=== PATIENT | female | born 1980 | race African-American/Black ===

== ENCOUNTER 2017-05-22 14:41 | Emergency (ER) | payer MEDICAID ==
[~2017-05-22] VITALS: Ht 167.6 cm; Wt 123.0 kg
[~2017-05-22 14:41] MED LIST: ALBU17AE26; SPIREVA
[2017-05-22] MEDS ORDERED: IPRATROPIUM/ALBUTEROL 0.5-3(2.5)MG/3ML NEB HHN ONE ×2 (15:30→17:30)
[2017-05-22] MEDS ORDERED: IPRATROPIUM/ALBUTEROL 0.5-3(2.5)MG/3ML NEB ONE (16:40)
[2017-05-22] MEDS ORDERED: METHYLPREDNISOLONE SOD SUCC 125 MG/2 ML VIAL IV ONE (17:30)
[2017-05-22] MEDS ORDERED: SODIUM CHLORIDE 0.9% 1,000 ML IV ONE (17:30)
[2017-05-22 19:50] VITALS: BP 122/74
== END 2017-05-22 21:00 | disposition home or self-care (01) ==
LOC: ER 15:05
DX: J45.901 Unspecified asthma with (acute) exacerbation (principal); J06.9 Acute upper respiratory infection, unspecified; E11.9 Type 2 diabetes mellitus without complications; F17.200 Nicotine dependence, unspecified, uncomplicated
CPT/HCPCS: 71010; 94640; 96361; 96374; 99284; J2930; J7030; Z7610; J7620

== ENCOUNTER 2017-10-26 15:46 | Emergency (ER) | payer MEDICAID ==
[~2017-10-26] VITALS: Ht 167.6 cm; Wt 127.0 kg
[2017-10-26] MEDS ORDERED: IPRATROPIUM BROMIDE (0.02%) 0.5MG/2.5ML NEB HHN STA (16:13)
[2017-10-26] MEDS ORDERED: PREDNISONE 20MG TABLET PO STA (16:13)
[2017-10-26] MEDS ORDERED: ALBUTEROL (0.083%) 2.5MG/3ML NEB HHN STA (16:13)
[2017-10-26] MEDS ORDERED: METHYLPREDNISOLONE SOD SUCC 125 MG/2 ML VIAL IM ONE (16:30)
[2017-10-26 19:20] VITALS: BP 155/84
== END 2017-10-26 19:24 | disposition home or self-care (01) ==
LOC: ER 16:59
DX: J45.901 Unspecified asthma with (acute) exacerbation (principal); E11.9 Type 2 diabetes mellitus without complications
CPT/HCPCS: 94640; 96372; 99283; J2930; J7611

== ENCOUNTER 2018-10-05 16:51 | Inpatient (IN) | payer OTHER, MEDICAID ==
[~2018-10-05] VITALS: Ht 167.6 cm; Wt 122.0 kg
[~2018-10-05 16:51] MED LIST changes: -ALBU17AE26; +ALBU17AE26 INH; +MUCINEX
[2018-10-05] MEDS ORDERED: METHYLPREDNISOLONE SOD SUCC 125 MG/2 ML VIAL IV STA (17:10)
[2018-10-05] MEDS ORDERED: IPRATROPIUM BROMIDE (0.02%) 0.5MG/2.5ML NEB HHN STA (17:10)
[2018-10-05] MEDS ORDERED: ALBUTEROL (0.083%) 2.5MG/3ML NEB HHN STA (17:10)
[2018-10-05 17:36] LABS: BASOPHILS % 0.9 % (0.0-2.0); EOSINOPHILS % 0.4 % (0.0-5.0); HEMATOCRIT. 39.4 % (36.0-48.0); HEMOGLOBIN. 12.7 g/dL (12.0-16.0); LYMPHOCYTES % 7.9 % (20.0-50.0); MEAN CORPUSCULAR HEMOGLOBIN 30.9 pg (28.0-32.0); MEAN CORPUSCULAR VOLUME 95.6 fL (81.0-99.0); MEAN PLATELET VOLUME 8.1 fl (7.4-10.4); MONOCYTES % 4.4 % (2.0-8.0); NEUTROPHILS % 86.4 % (40.0-76.0); PLATELET 296 x1000/uL (130-400); RED BLOOD CELL COUNT 4.11 mill/uL (4.2-5.4); RED CELL DISTRIBUTION WIDTH 15.7 % (11.6-14.6)
[2018-10-05 17:39] LABS: CHLORIDE 99 mEq/L (98-107)
[2018-10-05] MEDS ORDERED: AZITHROMYCIN 500 MG in DEXT 5% WATER 250 ML IV ONE (19:00)
[2018-10-05] MEDS ORDERED: CEFTRIAXONE 1 G PREMIX 50 ML IV ONE (19:00)
[2018-10-05] MEDS ORDERED: ALBUTEROL (0.083%) 2.5MG/3ML NEB HHN ONE (20:00)
[2018-10-05] MEDS ORDERED: LORAZEPAM 2MG/ML CPJ IV PRN (21:15)
[2018-10-05] MEDS ORDERED: ONDANSETRON HCL 4MG/2ML INJ IV PRN (21:15)
[2018-10-05] MEDS ORDERED: CLONIDINE 0.1MG TABLET PO PRN (21:15)
[2018-10-05] MEDS ORDERED: ENOXAPARIN 40MG/0.4ML SYR SUBCUT SCH (21:15)
[2018-10-05] MEDS ORDERED: ACETAMINOPHEN 325MG TABLET PO PRN (21:15)
[2018-10-05] MEDS ORDERED: DOCUSATE SODIUM 100MG CAPSULE PO PRN (21:15)
[2018-10-05] MEDS ORDERED: NA PHOS,M-B/NA PHOS,DI-BA ENEMA 118ML PR PRN (21:15)
[2018-10-05] MEDS ORDERED: DIPHENHYDRAMINE 50MG/ML VIAL IV PRN (21:15)
[2018-10-05] MEDS ORDERED: GUAIFENESIN 200MG/10ML SUGAR FREE UDC PO PRN (21:15)
[2018-10-05] MEDS ORDERED: MAGNESIUM/ALUMINUM HYDROXIDE/SIMETHICONE 30ML UDC PO PRN (21:15)
[2018-10-05] MEDS ORDERED: HYDROCODONE/ACETAMINOPHEN 10/325MG TABLET PO PRN (21:30)
[2018-10-05] MEDS ORDERED: HYDROMORPHONE HCL/PF 2MG/ML CPJ IV PRN (21:30)
[2018-10-06] VITALS (7 sets, daily range): BP systolic 115–141; BP diastolic 64–88
[2018-10-06 00:01] LABS: CREATINE KINASE 68 IU/L (26-192)
[2018-10-06 00:02] LABS: CREATINE KINASE MB FRACTION < 1.0 ng/mL (0.5-3.6)
[2018-10-06 00:10] LABS: CLARITY URINE CLEAR (CLEAR); COLOR URINE ORANGE (YELLOW); KETONES URINE TRACE (NEGATIVE); LEUKOCYTE ESTERASE URINE 1+ (NEGATIVE); NITRITE URINE NEGATIVE (NEGATIVE); OCCULT BLOOD URINE 3+ (NEGATIVE); PH URINE 5.5 (4.5-8.0); PROTEIN URINE 1+ (NEGATIVE); SPECIFIC GRAVITY URINE 1.021 (1.005-1.030)
[2018-10-06] MEDS: IPRATROPIUM/ALBUTEROL 0.5-3(2.5)MG/3ML NEB INH PRN ×3 (00:46→12:05)
[2018-10-06] MEDS ORDERED: HYDRALAZINE 20MG/ML VIAL IV PRN (01:22)
[2018-10-06] MEDS: METHYLPREDNISOLONE SOD SUCC 125 MG/2 ML VIAL IV SCH ×3 (02:16→12:08)
[2018-10-06] MEDS: SODIUM CHLORIDE 0.9% INJ 3ML FLUSH IVF SCH ×3 (06:00→21:28)
[2018-10-06 06:15] LABS: HEMATOCRIT. 38.5 % (36.0-48.0); HEMOGLOBIN. 12.3 g/dL (12.0-16.0); MEAN CORPUSCULAR HEMOGLOBIN 30.7 pg (28.0-32.0); MEAN CORPUSCULAR VOLUME 96.1 fL (81.0-99.0); MEAN PLATELET VOLUME 8.4 fl (7.4-10.4); PLATELET 300 x1000/uL (130-400); RED BLOOD CELL COUNT 4.01 mill/uL (4.2-5.4); RED CELL DISTRIBUTION WIDTH 15.6 % (11.6-14.6)
[2018-10-06 06:21] LABS: CHLORIDE 99 mEq/L (98-107)
[2018-10-06 06:35] LABS: CREATINE KINASE 60 IU/L (26-192)
[2018-10-06 06:39] LABS: CREATINE KINASE MB FRACTION < 1.0 ng/mL (0.5-3.6)
[2018-10-06 08:59] LABS: PLATELET ESTIMATE NORMAL
[2018-10-06] MEDS: ENOXAPARIN 30MG/0.3ML SYR SUBCUT SCH ×2 (09:00→21:00)
[2018-10-06] MEDS: ASPIRIN 81MG EC TABLET PO SCH (09:08)
[2018-10-06] MEDS: CEFTRIAXONE 1 G PREMIX 50 ML IV SCH (14:23)
[2018-10-06] MEDS: IPRATROPIUM/ALBUTEROL 0.5-3(2.5)MG/3ML NEB HHN SCH ×2 (15:22→21:07)
[2018-10-06] MEDS: AMLODIPINE 5MG TABLET PO SCH ×2 (15:33→21:29)
[2018-10-06] MEDS: NICOTINE 14MG PATCH TD SCH (16:55)
[2018-10-06] MEDS: PREDNISONE 20MG TABLET PO SCH (16:55)
[2018-10-06 17:28] LABS: UCG SCREEN NEGATIVE
[2018-10-06 17:40] LABS: *BARBITURATES SCREEN URINE NEGATIVE (NEGATIVE); CANNABINOID URINE SCREEN NEGATIVE (NEGATIVE); PHENCYCLIDINE URINE SCREEN NEGATIVE (NEGATIVE)
[2018-10-06 17:41] LABS: *AMPHETAMINES SCREEN URINE NEGATIVE (NEGATIVE); *BENZODIAZEPINES SCREEN URINE NEGATIVE (NEGATIVE); *COCAINE SCREEN URINE NEGATIVE (NEGATIVE); METHADONE URINE SCREEN NEGATIVE (NEGATIVE); OPIATES URINE SCREEN NEGATIVE (NEGATIVE)
[2018-10-06] MEDS: AZITHROMYCIN 500 MG in DEXT 5% WATER 250 ML IV SCH (18:16)
[2018-10-06] MEDS ORDERED: AZITHROMYCIN 500 MG in DEXT 5% WATER 250 ML IV SCH (21:00)
[2018-10-07] VITALS (7 sets, daily range): BP systolic 95–141; BP diastolic 55–83
[2018-10-07] MEDS: IPRATROPIUM/ALBUTEROL 0.5-3(2.5)MG/3ML NEB HHN SCH ×6 (00:50→21:13)
[2018-10-07] MEDS: SODIUM CHLORIDE 0.9% INJ 3ML FLUSH IVF SCH ×3 (05:39→20:37)
[2018-10-07] MEDS: AMLODIPINE 5MG TABLET PO SCH ×2 (09:00→20:37)
[2018-10-07] MEDS: PREDNISONE 20MG TABLET PO SCH ×2 (09:46→18:23)
[2018-10-07] MEDS: NICOTINE 14MG PATCH TD SCH (09:46)
[2018-10-07] MEDS: ASPIRIN 81MG EC TABLET PO SCH (09:46)
[2018-10-07] MEDS: ENOXAPARIN 30MG/0.3ML SYR SUBCUT SCH ×2 (09:47→20:37)
[2018-10-07] MEDS: CEFTRIAXONE 1 G PREMIX 50 ML IV SCH (14:12)
[2018-10-07] MEDS: AZITHROMYCIN 500 MG in DEXT 5% WATER 250 ML IV SCH (18:00)
[2018-10-08] MEDS: IPRATROPIUM/ALBUTEROL 0.5-3(2.5)MG/3ML NEB HHN SCH ×3 (00:57→08:33)
[2018-10-08 04:00] VITALS: BP 116/67
[2018-10-08] MEDS: SODIUM CHLORIDE 0.9% INJ 3ML FLUSH IVF SCH ×3 (06:00→22:00)
[2018-10-08 06:06] LABS: BASOPHILS % 0.4 % (0.0-2.0); HEMATOCRIT. 36.5 % (36.0-48.0); HEMOGLOBIN. 11.6 g/dL (12.0-16.0); LYMPHOCYTES % 17.7 % (20.0-50.0); MEAN CORPUSCULAR HEMOGLOBIN 30.4 pg (28.0-32.0); MEAN CORPUSCULAR VOLUME 96.1 fL (81.0-99.0); MEAN PLATELET VOLUME 8.4 fl (7.4-10.4); MONOCYTES % 4.5 % (2.0-8.0); NEUTROPHILS % 77.4 % (40.0-76.0); PLATELET 315 x1000/uL (130-400); RED CELL DISTRIBUTION WIDTH 15.4 % (11.6-14.6)
[2018-10-08 06:58] LABS: CHLORIDE 97 mEq/L (98-107)
[2018-10-08 08:00] VITALS: BP 131/79
[2018-10-08] MEDS: NICOTINE 14MG PATCH TD SCH ×2 (09:00→09:46)
[2018-10-08] MEDS: ASPIRIN 81MG EC TABLET PO SCH (09:45)
[2018-10-08] MEDS: PREDNISONE 20MG TABLET PO SCH (09:45)
[2018-10-08] MEDS: AMLODIPINE 5MG TABLET PO SCH ×2 (09:46→22:47)
[2018-10-08] MEDS: ENOXAPARIN 30MG/0.3ML SYR SUBCUT SCH ×2 (09:46→22:47)
[2018-10-08 12:00] VITALS: BP 153/87
[2018-10-08] MEDS: CEFTRIAXONE 1 G PREMIX 50 ML IV SCH (14:15)
[2018-10-08 16:00] VITALS: BP 160/92
[2018-10-08] MEDS: THEOPHYLLINE ANHYDROUS 80 MG/15 ML 120ML PO SCH ×2 (16:21→22:47)
[2018-10-08] MEDS ORDERED: AZITHROMYCIN 500 MG TABLET PO SCH (17:00)
[2018-10-08 19:56] VITALS: BP 142/87
[2018-10-09] VITALS: BP 148/78
[2018-10-09 04:00] VITALS: BP 142/84
[2018-10-09] MEDS: SODIUM CHLORIDE 0.9% INJ 3ML FLUSH IVF SCH (06:00)
[2018-10-09] MEDS: THEOPHYLLINE ANHYDROUS 80 MG/15 ML 120ML PO SCH (06:52)
[2018-10-09 07:48] VITALS: BP 137/92
[2018-10-09] MEDS: NICOTINE 14MG PATCH TD SCH (09:00)
[2018-10-09] MEDS ORDERED: PREDNISONE 20MG TABLET PO SCH (09:00)
[2018-10-09] MEDS: IPRATROPIUM/ALBUTEROL 0.5-3(2.5)MG/3ML NEB HHN SCH (09:45)
[2018-10-09] MEDS: ASPIRIN 81MG EC TABLET PO SCH (09:50)
[2018-10-09] MEDS: AMLODIPINE 5MG TABLET PO SCH (09:55)
[2018-10-09] MEDS: ENOXAPARIN 30MG/0.3ML SYR SUBCUT SCH ×2 (09:58→09:59)
[2018-10-09 11:27] VITALS: BP 137/74
== END 2018-10-09 14:05 | disposition home or self-care (01) | DRG 720 ==
LOC: ER 16:51 → 7WST 19:15 → ENRESERV 22:15
PROVIDERS: ADMIT Internal Medicine; ATTEND Internal Medicine
DX: A41.9 Sepsis, unspecified organism (principal); J96.20 Acute and chronic respiratory failure, unspecified whether with hypoxia or hypercapnia; J69.0 Pneumonitis due to inhalation of food and vomit; J44.1 Chronic obstructive pulmonary disease with (acute) exacerbation; J90 Pleural effusion, not elsewhere classified; R65.10 Systemic inflammatory response syndrome (SIRS) of non-infectious origin without acute organ dysfunction; I10 Essential (primary) hypertension; N39.0 Urinary tract infection, site not specified; J45.909 Unspecified asthma, uncomplicated; J43.0 Unilateral pulmonary emphysema [MacLeod's syndrome]; J43.9 Emphysema, unspecified; F17.210 Nicotine dependence, cigarettes, uncomplicated; Z82.3 Family history of stroke; Z82.49 Family history of ischemic heart disease and other diseases of the circulatory system; Z83.3 Family history of diabetes mellitus; Z98.891 History of uterine scar from previous surgery; Z79.899 Other long term (current) drug therapy
CPT/HCPCS: 36415; 71045; 71250; 80048; 80061; 80305; 81025; 82550; 82553; 83036; 84443; 84484; 87070; 93005; 93306; 94640; 96365; 96368; 96375; 99291; J0456; J0696; J1650; J2930; J7050; J7060; J7512; J7611; J7620

== ENCOUNTER 2019-08-02 21:39 | Emergency (ER) | payer MEDICAID ==
[~2019-08-02] VITALS: Ht 170.2 cm; Wt 100.0 kg
[~2019-08-02 21:39] MED LIST changes: -ALBU17AE26 INH; +ALBU2.5V13 NEB; +ALBU90AE IH; -MUCINEX; -SPIREVA; +TIOT18CA3 INH
[2019-08-02] MEDS ORDERED: SODIUM CHLORIDE 0.9% 1,000 ML IV ONE (21:53)
[2019-08-02] MEDS ORDERED: METHYLPREDNISOLONE SOD SUCC 125 MG/2 ML VIAL IV STA (21:53)
[2019-08-02 22:53] LABS: BASOPHILS % 0.3 % (0.0-2.0); EOSINOPHILS % 0.6 % (0.0-5.0); HEMATOCRIT. 41.2 % (36.0-48.0); HEMOGLOBIN. 13.1 g/dL (12.0-16.0); LYMPHOCYTES % 37.7 % (20.0-50.0); MEAN CORPUSCULAR HEMOGLOBIN 30.1 pg (28.0-32.0); MEAN PLATELET VOLUME 8.7 fl (7.4-10.4); MONOCYTES % 6.2 % (2.0-8.0); NEUTROPHILS % 55.2 % (40.0-76.0); PLATELET 293 x1000/uL (130-400); RED BLOOD CELL COUNT 4.33 mill/uL (4.2-5.4); RED CELL DISTRIBUTION WIDTH 13.8 % (11.6-14.6)
[2019-08-02 22:59] LABS: CHLORIDE 105 mEq/L (98-107)
[2019-08-02] MEDS ORDERED: DIPHENHYDRAMINE 50MG CAPSULE PO ONE (23:00)
[2019-08-02] MEDS ORDERED: FAMOTIDINE 20MG/2ML VIAL IV ONE (23:00)
[2019-08-02] MEDS ORDERED: POTASSIUM CHLORIDE 20MEQ TABLET SR PO ONE (23:15)
[2019-08-03 00:53] VITALS: BP 138/78
== END 2019-08-03 00:56 | disposition home or self-care (01) ==
LOC: ER 22:06
DX: T78.40XA Allergy, unspecified, initial encounter (principal); J45.909 Unspecified asthma, uncomplicated; Z79.899 Other long term (current) drug therapy; Z98.890 Other specified postprocedural states; X58.XXXA Exposure to other specified factors, initial encounter
CPT/HCPCS: 36415; 80053; 85025; 96374; 96375; 99283; J2930; J3490; J7030; Q0163

== ENCOUNTER 2019-10-04 05:22 | Emergency (ER) | payer MEDICAID ==
[~2019-10-04] VITALS: Ht 170.2 cm; Wt 83.0 kg
[2019-10-04] MEDS ORDERED: METHYLPREDNISOLONE SOD SUCC 40 MG/ML VIAL IV ONE (05:30)
[2019-10-04] MEDS ORDERED: FAMOTIDINE 20MG TABLET PO ONE (05:30)
[2019-10-04] MEDS ORDERED: DIPHENHYDRAMINE 25MG CAPSULE PO ONE (05:30)
[2019-10-04 06:12] LABS: CHLORIDE 103 mEq/L (98-107)
[2019-10-04 06:29] LABS: BASOPHILS % 1.1 % (0.0-2.0); EOSINOPHILS % 0.9 % (0.0-5.0); HEMATOCRIT. 36.4 % (36.0-48.0); HEMOGLOBIN. 11.6 g/dL (12.0-16.0); LYMPHOCYTES % 25.1 % (20.0-50.0); MEAN CORPUSCULAR HEMOGLOBIN 27.8 pg (28.0-32.0); MEAN CORPUSCULAR VOLUME 87.3 fL (81.0-99.0); MEAN PLATELET VOLUME 8.2 fl (7.4-10.4); MONOCYTES % 8.6 % (2.0-8.0); NEUTROPHILS % 64.3 % (40.0-76.0); PLATELET 261 x1000/uL (130-400); RED BLOOD CELL COUNT 4.17 mill/uL (4.2-5.4); RED CELL DISTRIBUTION WIDTH 15.4 % (11.6-14.6)
[2019-10-04 08:58] VITALS: BP 152/90
== END 2019-10-04 09:21 | disposition home or self-care (01) ==
LOC: ER 05:22
DX: R06.03 Acute respiratory distress (principal); Z20.828 Contact with and (suspected) exposure to other viral communicable diseases
CPT/HCPCS: 36415; 71045; 80053; 83605; 83880; 84145; 84484; 85025; 87635; 93005; 96374; 99291; J2920; Q0163

== ENCOUNTER 2019-10-12 11:40 | Inpatient (IN) | payer MEDICAID ==
[~2019-10-12] VITALS: Ht 172.7 cm; Wt 103.9 kg
[2019-10-12] MEDS ORDERED: ALBUTEROL (0.083%) 2.5MG/3ML NEB HHN STA (12:32)
[2019-10-12] MEDS ORDERED: METHYLPREDNISOLONE SOD SUCC 125 MG/2 ML VIAL IV STA (12:32)
[2019-10-12] MEDS ORDERED: IPRATROPIUM BROMIDE (0.02%) 0.5MG/2.5ML NEB HHN STA (12:32)
[2019-10-12] MEDS ORDERED: ASPIRIN 81MG TABLET PO ONE (12:45)
[2019-10-12 13:01] LABS: BASOPHILS % 0.7 % (0.0-2.0); HEMATOCRIT. 35.6 % (36.0-48.0); HEMOGLOBIN. 11.3 g/dL (12.0-16.0); LYMPHOCYTES % 11.5 % (20.0-50.0); MEAN CORPUSCULAR HEMOGLOBIN 27.2 pg (28.0-32.0); MEAN CORPUSCULAR VOLUME 85.5 fL (81.0-99.0); MEAN PLATELET VOLUME 7.7 fl (7.4-10.4); MONOCYTES % 7.9 % (2.0-8.0); NEUTROPHILS % 78.9 % (40.0-76.0); PLATELET 369 x1000/uL (130-400); RED BLOOD CELL COUNT 4.17 mill/uL (4.2-5.4)
[2019-10-12 13:10] LABS: CHLORIDE 100 mEq/L (98-107)
[2019-10-12 13:14] LABS: HCG SCREEN NEGATIVE
[2019-10-12] MEDS ORDERED: VANCOMYCIN 1 G PREMIX 200 ML IV ONE (13:45)
[2019-10-12] MEDS ORDERED: PIPERACILLIN/TAZ 3.375G PREMIX 50 ML IV ONE (13:45)
[2019-10-12] MEDS ORDERED: SODIUM CHLORIDE 0.9% 1000ML BAG (SEPSIS BOLUS) IV ONE (13:45)
[2019-10-12 16:36] LABS: CLARITY URINE CLOUDY (CLEAR); COLOR URINE RED (YELLOW); KETONES URINE NEGATIVE (NEGATIVE); LEUKOCYTE ESTERASE URINE 1+ (NEGATIVE); NITRITE URINE NEGATIVE (NEGATIVE); OCCULT BLOOD URINE 3+ (NEGATIVE); PROTEIN URINE 1+ (NEGATIVE); SPECIFIC GRAVITY URINE 1.014 (1.005-1.030); UROBILINOGEN URINE 0.2 E.U./dL (0.2-1.0)
[2019-10-12 17:10] VITALS: BP 149/90
[2019-10-12] MEDS ORDERED: ZOLPIDEM TARTRATE 5MG TABLET PO PRN (18:15)
[2019-10-12 20:00] VITALS: BP 147/85
[2019-10-12] MEDS: SODIUM CHLORIDE 0.9% INJ 3ML FLUSH IVF SCH (22:25)
[2019-10-12] MEDS: ACETAMINOPHEN 325MG TABLET PO PRN (22:32)
[2019-10-12] MEDS: IPRATROPIUM/ALBUTEROL 0.5-3(2.5)MG/3ML NEB HHN SCH (22:36)
[2019-10-13] VITALS: BP 145/88
[2019-10-13] MEDS: IPRATROPIUM/ALBUTEROL 0.5-3(2.5)MG/3ML NEB HHN SCH ×5 (00:41→21:13)
[2019-10-13 02:00] VITALS: BP 145/88
[2019-10-13 04:00] VITALS: BP 128/75
[2019-10-13] MEDS: IPRATROPIUM/ALBUTEROL 0.5-3(2.5)MG/3ML NEB HHN PRN (05:04)
[2019-10-13] MEDS: SODIUM CHLORIDE 0.9% INJ 3ML FLUSH IVF SCH ×3 (06:48→22:27)
[2019-10-13] MEDS: ACETAMINOPHEN 325MG TABLET PO PRN ×3 (06:49→15:40)
[2019-10-13 07:14] LABS: PROTHROMBIN TIME 10.9 sec (9.6-11.0)
[2019-10-13 08:46] VITALS: BP 164/95
[2019-10-13] MEDS: GUAIFENESIN 200MG/10ML SUGAR FREE UDC PO PRN (10:42)
[2019-10-13 16:00] VITALS: BP 138/86
[2019-10-13 20:48] VITALS: BP 131/66
[2019-10-14] VITALS (39 sets, daily range): BP systolic 100–221; BP diastolic 58–108
[2019-10-14] MEDS: ACETAMINOPHEN 325MG TABLET PO PRN (00:16)
[2019-10-14] MEDS: GUAIFENESIN 200MG/10ML SUGAR FREE UDC PO PRN (00:16)
[2019-10-14] MEDS: IPRATROPIUM/ALBUTEROL 0.5-3(2.5)MG/3ML NEB HHN PRN ×2 (00:54→04:47)
[2019-10-14] MEDS: SODIUM CHLORIDE 0.9% INJ 3ML FLUSH IVF SCH ×2 (06:01→21:29)
[2019-10-14] MEDS ORDERED: CLONIDINE 0.1MG TABLET PO PRN (08:45)
[2019-10-14] MEDS: IPRATROPIUM/ALBUTEROL 0.5-3(2.5)MG/3ML NEB HHN SCH ×3 (08:47→20:42)
[2019-10-14 13:40] LABS: BG BASE EXCESS 13.5 mmol/L (-2.0-2.0); BG CARBOXYHEMOGLOBIN 0.5 % (0.5-1.5); BG DEOXYHEMOGLOBIN 4.8 % (0.0-5.0); BG FRACTION INSPIRED OXYGEN 60; BG HCO3 ACT 46.3 mmol/L (22.0-26.0); BG METHEMOGLOBIN 0.3 % (0.0-1.5); BG OXYGEN SATURATION 95.2 % (92.0-98.5); BG OXYHEMOGLOBIN 94.4 % (94.0-97.0); BG PCO2 127.7 mmHg (35.0-45.0); BG PH 7.177 (7.350-7.450); BG PO2 85.7 mmHg (75.0-100.0); BG SAMPLE SITE RIGHT BRACHIAL; BG TOTAL HEMOGLOBIN 11.5 g/dL (12.0-18.0); BG VENT MODE MASK - SIMPLE
[2019-10-14] MEDS: FENTANYL CITRATE/PF 500 MCG in SODIUM CHLORIDE 0.9% 40 ML IV PRN ×2 (15:16→18:25)
[2019-10-14] MEDS: MIDAZOLAM HCL 50 MG in DEXTROSE 5% WATER 40 ML IV PRN ×2 (15:17→18:25)
[2019-10-14 16:27] LABS: BG BASE EXCESS 10.9 mmol/L (-2.0-2.0); BG CARBOXYHEMOGLOBIN 0.2 % (0.5-1.5); BG DEOXYHEMOGLOBIN 2.1 % (0.0-5.0); BG FRACTION INSPIRED OXYGEN 50; BG HCO3 ACT 35.8 mmol/L (22.0-26.0); BG METHEMOGLOBIN 0.1 % (0.0-1.5); BG OXYGEN SATURATION 97.9 % (92.0-98.5); BG OXYHEMOGLOBIN 97.6 % (94.0-97.0); BG PCO2 48.9 mmHg (35.0-45.0); BG PH 7.482 (7.350-7.450); BG PO2 90.8 mmHg (75.0-100.0); BG SAMPLE SITE RIGHT BRACHIAL; BG TIDAL VOLUME(mL) 550 mL; BG TOTAL HEMOGLOBIN 10.5 g/dL (12.0-18.0); BG VENT MODE VENT - A/C; BG VENT RATE 18 set
[2019-10-14] MEDS: DEXT 5%/0.45% NACL 1000ML 1,000 ML IV SCH (18:06)
[2019-10-14] MEDS: PANTOPRAZOLE SODIUM 40 MG/VIAL IV SCH (18:06)
[2019-10-14] MEDS: ENOXAPARIN 30MG/0.3ML SYR SUBCUT SCH (20:23)
[2019-10-14] MEDS ORDERED: MIDAZOLAM HCL 100 MG in DEXTROSE 5% WATER 80 ML IV PRN (22:00)
[2019-10-14] MEDS: FENTANYL CITRATE/PF 1,000 MCG in SODIUM CHLORIDE 0.9% 80 ML IV PRN (23:33)
[2019-10-14] MEDS: MIDAZOLAM HCL 100 MG in DEXT 5% WATER 80 ML IV PRN (23:33)
[2019-10-15] VITALS (89 sets, daily range): BP systolic 85–143; BP diastolic 33–81
[2019-10-15] MEDS: IPRATROPIUM/ALBUTEROL 0.5-3(2.5)MG/3ML NEB HHN SCH ×4 (02:02→20:31)
[2019-10-15] MEDS: DEXT 5%/0.45% NACL 1000ML 1,000 ML IV SCH ×4 (02:07→20:42)
[2019-10-15 03:29] LABS: HEMATOCRIT. 28.8 % (36.0-48.0); HEMOGLOBIN. 9.1 g/dL (12.0-16.0); MEAN CORPUSCULAR HEMOGLOBIN 27.1 pg (28.0-32.0); MEAN CORPUSCULAR VOLUME 85.6 fL (81.0-99.0); MEAN PLATELET VOLUME 8.4 fl (7.4-10.4); PLATELET 266 x1000/uL (130-400); RED BLOOD CELL COUNT 3.36 mill/uL (4.2-5.4); RED CELL DISTRIBUTION WIDTH 15.9 % (11.6-14.6)
[2019-10-15] MEDS: SODIUM CHLORIDE 0.9% INJ 3ML FLUSH IVF SCH ×3 (05:02→21:57)
[2019-10-15 06:30] LABS: PLATELET ESTIMATE NORMAL
[2019-10-15] MEDS ORDERED: SODIUM BICARBONATE 4% (2.4MEQ) 5ML VIAL IV ONE (08:12)
[2019-10-15] MEDS ORDERED: LIDOCAINE HCL 1% 20ML VIAL (Pyxis) INJ ONE (08:12)
[2019-10-15 08:32] LABS: BG BASE EXCESS 10.3 mmol/L (-2.0-2.0); BG CARBOXYHEMOGLOBIN 0.4 % (0.5-1.5); BG DEOXYHEMOGLOBIN 2.4 % (0.0-5.0); BG FRACTION INSPIRED OXYGEN 50; BG HCO3 ACT 34.2 mmol/L (22.0-26.0); BG METHEMOGLOBIN 0.2 % (0.0-1.5); BG OXYGEN SATURATION 97.6 % (92.0-98.5); BG PCO2 43.2 mmHg (35.0-45.0); BG PH 7.516 (7.350-7.450); BG SAMPLE SITE RIGHT RADIAL; BG TIDAL VOLUME(mL) 550 mL; BG TOTAL HEMOGLOBIN 9.7 g/dL (12.0-18.0); BG VENT MODE VENT - A/C; BG VENT RATE 18 set
[2019-10-15] MEDS: BLOOD SUGAR DIAGNOSTIC STRIP TEST SCH ×3 (09:00→20:38)
[2019-10-15] MEDS ORDERED: DEXTROSE 50% WATER 50ML SYRINGE IV PRN (09:00)
[2019-10-15] MEDS: PANTOPRAZOLE SODIUM 40 MG/VIAL IV SCH (09:31)
[2019-10-15] MEDS: ENOXAPARIN 30MG/0.3ML SYR SUBCUT SCH ×2 (09:32→20:38)
[2019-10-15] MEDS: PIPERACILLIN/TAZOBACTAM 3.375 G in DEXT 5% WATER 100 ML IV SCH ×2 (12:16→17:57)
[2019-10-15] MEDS: ACETAMINOPHEN 325MG TABLET PO PRN ×2 (12:52→17:57)
[2019-10-15] MEDS: FENTANYL CITRATE/PF 1,000 MCG in SODIUM CHLORIDE 0.9% 80 ML IV PRN (13:11)
[2019-10-15] MEDS: INSULIN LISPRO 100 UNITS/ML SUBCUT SCH ×3 (13:20→21:11)
[2019-10-15] MEDS ORDERED: PIPERACILLIN/TAZOBACTAM 3.375 G/VIAL IV SCH (14:00)
[2019-10-15] MEDS: VANCOMYCIN HCL 750 MG in DEXT 5% WATER 250 ML IV SCH ×2 (14:13→20:37)
[2019-10-15] MEDS: MIDAZOLAM HCL 100 MG in DEXT 5% WATER 80 ML IV PRN (14:13)
[2019-10-16] VITALS (98 sets, daily range): BP systolic 91–143; BP diastolic 54–88
[2019-10-16] MEDS: PIPERACILLIN/TAZOBACTAM 3.375 G in DEXT 5% WATER 100 ML IV SCH ×3 (01:37→17:45)
[2019-10-16] MEDS: IPRATROPIUM/ALBUTEROL 0.5-3(2.5)MG/3ML NEB HHN SCH ×5 (03:17→20:17)
[2019-10-16] MEDS: BLOOD SUGAR DIAGNOSTIC STRIP TEST SCH ×3 (05:55→17:49)
[2019-10-16] MEDS: INSULIN LISPRO 100 UNITS/ML SUBCUT SCH ×3 (05:56→17:47)
[2019-10-16] MEDS: SODIUM CHLORIDE 0.9% INJ 3ML FLUSH IVF SCH ×3 (06:00→22:00)
[2019-10-16] MEDS: DEXT 5%/0.45% NACL 1000ML 1,000 ML IV SCH ×2 (07:03→17:50)
[2019-10-16 08:18] LABS: BG BASE EXCESS 6.4 mmol/L (-2.0-2.0); BG CARBOXYHEMOGLOBIN 0.6 % (0.5-1.5); BG DEOXYHEMOGLOBIN 9.3 % (0.0-5.0); BG HCO3 ACT 32.2 mmol/L (22.0-26.0); BG METHEMOGLOBIN 0.3 % (0.0-1.5); BG OXYGEN SATURATION 90.6 % (92.0-98.5); BG OXYHEMOGLOBIN 89.8 % (94.0-97.0); BG PCO2 53.1 mmHg (35.0-45.0); BG PO2 62.8 mmHg (75.0-100.0); BG SAMPLE SITE RIGHT RADIAL; BG TIDAL VOLUME(mL) 550 mL; BG TOTAL HEMOGLOBIN 8.9 g/dL (12.0-18.0); BG VENT MODE VENT - A/C; BG VENT RATE 14 set
[2019-10-16 08:26] LABS: BG FRACTION INSPIRED OXYGEN 50
[2019-10-16] MEDS: MIDAZOLAM HCL 100 MG in DEXT 5% WATER 80 ML IV PRN (09:30)
[2019-10-16] MEDS: VANCOMYCIN HCL 750 MG in DEXT 5% WATER 250 ML IV SCH (09:30)
[2019-10-16] MEDS: PANTOPRAZOLE SODIUM 40 MG/VIAL IV SCH (09:30)
[2019-10-16] MEDS: ENOXAPARIN 30MG/0.3ML SYR SUBCUT SCH (09:31)
[2019-10-16 10:11] LABS: HEMATOCRIT. 25.8 % (36.0-48.0); MEAN CORPUSCULAR HEMOGLOBIN 26.4 pg (28.0-32.0); MEAN CORPUSCULAR VOLUME 85.2 fL (81.0-99.0); MEAN PLATELET VOLUME 8.6 fl (7.4-10.4); PLATELET 220 x1000/uL (130-400); RED BLOOD CELL COUNT 3.03 mill/uL (4.2-5.4); RED CELL DISTRIBUTION WIDTH 15.9 % (11.6-14.6)
[2019-10-16 10:33] LABS: CHLORIDE 95 mEq/L (98-107)
[2019-10-16 10:56] LABS: PLATELET ESTIMATE NORMAL
[2019-10-16] MEDS: FUROSEMIDE 40MG/4ML VIAL IVP SCH (11:56)
[2019-10-16] MEDS ORDERED: POTASSIUM CHLORIDE 20MEQ/PACKET NG NR (12:00)
[2019-10-16] MEDS: VANCOMYCIN 1500MG in DEXTROSE 5% WATER 250ML IV SCH (17:49)
[2019-10-16] MEDS: IPRATROPIUM/ALBUTEROL 0.5-3(2.5)MG/3ML NEB HHN PRN (18:02)
[2019-10-16] MEDS: FENTANYL CITRATE/PF 1,000 MCG in SODIUM CHLORIDE 0.9% 80 ML IV PRN (18:59)
[2019-10-17] VITALS (71 sets, daily range): BP systolic 93–137; BP diastolic 49–77
[2019-10-17] MEDS: INSULIN LISPRO 100 UNITS/ML SUBCUT SCH ×4 (00:05→17:28)
[2019-10-17] MEDS: ACETAMINOPHEN 325MG TABLET PO PRN (00:13)
[2019-10-17] MEDS: PIPERACILLIN/TAZOBACTAM 3.375 G in DEXT 5% WATER 100 ML IV SCH ×3 (01:52→17:28)
[2019-10-17] MEDS: IPRATROPIUM/ALBUTEROL 0.5-3(2.5)MG/3ML NEB HHN SCH ×4 (02:06→20:04)
[2019-10-17 05:29] LABS: HEMATOCRIT. 29.4 % (36.0-48.0); HEMOGLOBIN. 9.4 g/dL (12.0-16.0); MEAN CORPUSCULAR HEMOGLOBIN 27.7 pg (28.0-32.0); MEAN CORPUSCULAR VOLUME 86.5 fL (81.0-99.0); MEAN PLATELET VOLUME 8.7 fl (7.4-10.4); PLATELET 199 x1000/uL (130-400); RED CELL DISTRIBUTION WIDTH 15.6 % (11.6-14.6)
[2019-10-17] MEDS: VANCOMYCIN 1500MG in DEXTROSE 5% WATER 250ML IV SCH ×2 (05:45→17:33)
[2019-10-17] MEDS: BLOOD SUGAR DIAGNOSTIC STRIP TEST SCH ×4 (05:45→17:09)
[2019-10-17 05:48] LABS: CHLORIDE 93 mEq/L (98-107)
[2019-10-17] MEDS: SODIUM CHLORIDE 0.9% INJ 3ML FLUSH IVF SCH ×3 (06:00→22:07)
[2019-10-17] MEDS: MIDAZOLAM HCL 100 MG in DEXT 5% WATER 80 ML IV PRN (06:22)
[2019-10-17] MEDS: DEXT 5%/0.45% NACL 1000ML 1,000 ML IV SCH ×2 (06:39→11:06)
[2019-10-17] MEDS: PANTOPRAZOLE SODIUM 40 MG/VIAL IV SCH (08:11)
[2019-10-17] MEDS: FUROSEMIDE 40MG/4ML VIAL IVP SCH (08:12)
[2019-10-17 09:40] LABS: BG BASE EXCESS 14.3 mmol/L (-2.0-2.0); BG CARBOXYHEMOGLOBIN 0.9 % (0.5-1.5); BG DEOXYHEMOGLOBIN 5.8 % (0.0-5.0); BG FRACTION INSPIRED OXYGEN 50; BG HCO3 ACT 41.7 mmol/L (22.0-26.0); BG METHEMOGLOBIN 0.2 % (0.0-1.5); BG OXYGEN SATURATION 94.1 % (92.0-98.5); BG OXYHEMOGLOBIN 93.1 % (94.0-97.0); BG PCO2 70.6 mmHg (35.0-45.0); BG PH 7.389 (7.350-7.450); BG PO2 69.2 mmHg (75.0-100.0); BG SAMPLE SITE RIGHT RADIAL; BG TIDAL VOLUME(mL) 550 mL; BG TOTAL HEMOGLOBIN 9.9 g/dL (12.0-18.0); BG VENT MODE VENT - A/C; BG VENT RATE 14 set
[2019-10-17 10:14] LABS: PLATELET ESTIMATE NORMAL
[2019-10-17 10:29] LABS: BG BASE EXCESS 1.6 mmol/L (-2.0-2.0); BG CARBOXYHEMOGLOBIN 0.3 % (0.5-1.5); BG DEOXYHEMOGLOBIN 8.4 % (0.0-5.0); BG FRACTION INSPIRED OXYGEN 50; BG HCO3 ACT 26.5 mmol/L (22.0-26.0); BG METHEMOGLOBIN 0.1 % (0.0-1.5); BG OXYGEN SATURATION 91.6 % (92.0-98.5); BG OXYHEMOGLOBIN 91.2 % (94.0-97.0); BG PH 7.407 (7.350-7.450); BG PO2 66.6 mmHg (75.0-100.0); BG SAMPLE SITE RIGHT BRACHIAL; BG TIDAL VOLUME(mL) 550 mL; BG TOTAL HEMOGLOBIN 9.4 g/dL (12.0-18.0); BG VENT MODE VENT - A/C; BG VENT RATE 14 set
[2019-10-17] MEDS: FENTANYL CITRATE/PF 1,000 MCG in SODIUM CHLORIDE 0.9% 80 ML IV PRN (11:06)
[2019-10-17] MEDS: IPRATROPIUM/ALBUTEROL 0.5-3(2.5)MG/3ML NEB HHN PRN ×2 (12:10→18:06)
[2019-10-17] MEDS ORDERED: POTASSIUM CHLORIDE 20MEQ/PACKET NG SCH (13:45)
[2019-10-17] MEDS ORDERED: MAGNESIUM HYDROXIDE 400MG/5ML 30ML UDC PO SCH (13:45)
[2019-10-17] MEDS: INSULIN GLARGINE UD 100 UNITS/ML SYR SUBCUT SCH (22:07)
[2019-10-18] VITALS (48 sets, daily range): BP systolic 86–136; BP diastolic 45–86
[2019-10-18] MEDS: INSULIN LISPRO 100 UNITS/ML SUBCUT SCH ×5 (00:05→23:19)
[2019-10-18] MEDS: ACETAMINOPHEN 325MG TABLET PO PRN (00:06)
[2019-10-18] MEDS: FENTANYL CITRATE/PF 1,000 MCG in SODIUM CHLORIDE 0.9% 80 ML IV PRN ×3 (01:02→22:03)
[2019-10-18] MEDS: PIPERACILLIN/TAZOBACTAM 3.375 G in DEXT 5% WATER 100 ML IV SCH ×3 (02:01→17:09)
[2019-10-18] MEDS: IPRATROPIUM/ALBUTEROL 0.5-3(2.5)MG/3ML NEB HHN SCH ×4 (02:05→20:17)
[2019-10-18] MEDS: MIDAZOLAM HCL 100 MG in DEXT 5% WATER 80 ML IV PRN ×2 (03:46→16:18)
[2019-10-18 05:24] LABS: BASOPHILS % 0.6 % (0.0-2.0); EOSINOPHILS % 1.6 % (0.0-5.0); HEMATOCRIT. 28.6 % (36.0-48.0); HEMOGLOBIN. 9.2 g/dL (12.0-16.0); LYMPHOCYTES % 9.8 % (20.0-50.0); MEAN CORPUSCULAR HEMOGLOBIN 27.4 pg (28.0-32.0); MEAN PLATELET VOLUME 8.5 fl (7.4-10.4); PLATELET 220 x1000/uL (130-400); RED BLOOD CELL COUNT 3.37 mill/uL (4.2-5.4); RED CELL DISTRIBUTION WIDTH 16.2 % (11.6-14.6)
[2019-10-18] MEDS: BLOOD SUGAR DIAGNOSTIC STRIP TEST SCH ×5 (05:29→23:11)
[2019-10-18] MEDS: VANCOMYCIN 1500MG in DEXTROSE 5% WATER 250ML IV SCH (05:29)
[2019-10-18] MEDS: SODIUM CHLORIDE 0.9% INJ 3ML FLUSH IVF SCH ×3 (05:29→21:09)
[2019-10-18 06:00] LABS: CHLORIDE 92 mEq/L (98-107)
[2019-10-18] MEDS: PANTOPRAZOLE SODIUM 40 MG/VIAL IV SCH (08:30)
[2019-10-18] MEDS: FUROSEMIDE 40MG/4ML VIAL IVP SCH (08:30)
[2019-10-18 08:55] LABS: BG BASE EXCESS 13.2 mmol/L (-2.0-2.0); BG CARBOXYHEMOGLOBIN 0.4 % (0.5-1.5); BG DEOXYHEMOGLOBIN 5.9 % (0.0-5.0); BG FRACTION INSPIRED OXYGEN 50; BG HCO3 ACT 39.8 mmol/L (22.0-26.0); BG OXYGEN SATURATION 94.1 % (92.0-98.5); BG OXYHEMOGLOBIN 93.7 % (94.0-97.0); BG PCO2 63.7 mmHg (35.0-45.0); BG PH 7.414 (7.350-7.450); BG PO2 69.4 mmHg (75.0-100.0); BG SAMPLE SITE RIGHT BRACHIAL; BG TIDAL VOLUME(mL) 550 mL; BG TOTAL HEMOGLOBIN 9.9 g/dL (12.0-18.0); BG VENT MODE VENT - A/C; BG VENT RATE 14 set
[2019-10-18] MEDS: INSULIN GLARGINE UD 100 UNITS/ML SYR SUBCUT SCH ×2 (09:48→23:18)
[2019-10-18] MEDS ORDERED: VANCOMYCIN 1,000 MG in DEXT 5% WATER 250 ML IV SCH (14:00)
[2019-10-18] MEDS: VANCOMYCIN 1 G PREMIX 200 ML IV SCH ×2 (14:48→21:08)
[2019-10-18] MEDS: DIPHENHYDRAMINE 50MG/ML VIAL IV PRN (21:08)
[2019-10-18] MEDS: QUETIAPINE FUMARATE 25MG TABLET PO SCH (21:08)
[2019-10-19] VITALS (48 sets, daily range): BP systolic 102–135; BP diastolic 52–81
[2019-10-19] MEDS: IPRATROPIUM/ALBUTEROL 0.5-3(2.5)MG/3ML NEB HHN SCH ×3 (01:21→20:39)
[2019-10-19] MEDS: PIPERACILLIN/TAZOBACTAM 3.375 G in DEXT 5% WATER 100 ML IV SCH ×3 (01:45→17:34)
[2019-10-19] MEDS: MIDAZOLAM HCL 100 MG in DEXT 5% WATER 80 ML IV PRN (02:26)
[2019-10-19] MEDS: SODIUM CHLORIDE 0.9% INJ 3ML FLUSH IVF SCH ×3 (05:50→21:19)
[2019-10-19] MEDS: VANCOMYCIN 1 G PREMIX 200 ML IV SCH ×3 (05:54→21:19)
[2019-10-19] MEDS: INSULIN LISPRO 100 UNITS/ML SUBCUT SCH ×3 (06:00→17:35)
[2019-10-19 06:22] LABS: BASOPHILS % 0.7 % (0.0-2.0); EOSINOPHILS % 2.1 % (0.0-5.0); HEMATOCRIT. 28.6 % (36.0-48.0); HEMOGLOBIN. 9.1 g/dL (12.0-16.0); MEAN CORPUSCULAR HEMOGLOBIN 27.3 pg (28.0-32.0); MEAN CORPUSCULAR VOLUME 85.6 fL (81.0-99.0); MEAN PLATELET VOLUME 8.9 fl (7.4-10.4); MONOCYTES % 8.3 % (2.0-8.0); NEUTROPHILS % 79.9 % (40.0-76.0); PLATELET 244 x1000/uL (130-400); RED BLOOD CELL COUNT 3.34 mill/uL (4.2-5.4); RED CELL DISTRIBUTION WIDTH 16.1 % (11.6-14.6)
[2019-10-19 06:34] LABS: CHLORIDE 90 mEq/L (98-107)
[2019-10-19] MEDS: BLOOD SUGAR DIAGNOSTIC STRIP TEST SCH ×3 (06:48→17:30)
[2019-10-19 08:01] LABS: BG BASE EXCESS 1.8 mmol/L (-2.0-2.0); BG CARBOXYHEMOGLOBIN 0.4 % (0.5-1.5); BG DEOXYHEMOGLOBIN 8.9 % (0.0-5.0); BG FRACTION INSPIRED OXYGEN 50; BG HCO3 ACT 26.9 mmol/L (22.0-26.0); BG METHEMOGLOBIN 0.3 % (0.0-1.5); BG OXYHEMOGLOBIN 90.4 % (94.0-97.0); BG PCO2 44.7 mmHg (35.0-45.0); BG PH 7.397 (7.350-7.450); BG PO2 68.6 mmHg (75.0-100.0); BG SAMPLE SITE RIGHT RADIAL; BG TIDAL VOLUME(mL) 550 mL; BG TOTAL HEMOGLOBIN 8.5 g/dL (12.0-18.0); BG VENT MODE VENT - A/C; BG VENT RATE 14 set
[2019-10-19] MEDS: PANTOPRAZOLE SODIUM 40 MG/VIAL IV SCH (08:45)
[2019-10-19] MEDS: QUETIAPINE FUMARATE 25MG TABLET PO SCH ×2 (08:45→21:19)
[2019-10-19] MEDS: FUROSEMIDE 40MG/4ML VIAL IVP SCH (08:45)
[2019-10-19] MEDS: ACETAMINOPHEN 325MG TABLET PO PRN (08:46)
[2019-10-19] MEDS: INSULIN GLARGINE UD 100 UNITS/ML SYR SUBCUT SCH ×2 (10:24→22:03)
[2019-10-19] MEDS: IPRATROPIUM/ALBUTEROL 0.5-3(2.5)MG/3ML NEB HHN PRN ×2 (12:15→16:35)
[2019-10-19] MEDS: FENTANYL CITRATE/PF 1,000 MCG in SODIUM CHLORIDE 0.9% 80 ML IV PRN (20:27)
[2019-10-19] MEDS ORDERED: FENTANYL CITRATE/PF 1,000 MCG in SODIUM CHLORIDE 0.9% 80 ML IV PRN (20:30)
[2019-10-20] VITALS (48 sets, daily range): BP systolic 112–157; BP diastolic 53–89
[2019-10-20] MEDS: INSULIN LISPRO 100 UNITS/ML SUBCUT SCH ×4 (00:31→18:13)
[2019-10-20] MEDS: BLOOD SUGAR DIAGNOSTIC STRIP TEST SCH ×4 (00:31→17:48)
[2019-10-20] MEDS: IPRATROPIUM/ALBUTEROL 0.5-3(2.5)MG/3ML NEB HHN SCH ×4 (00:48→20:37)
[2019-10-20] MEDS: PIPERACILLIN/TAZOBACTAM 3.375 G in DEXT 5% WATER 100 ML IV SCH ×2 (01:57→10:37)
[2019-10-20] MEDS: VANCOMYCIN 1 G PREMIX 200 ML IV SCH (05:08)
[2019-10-20] MEDS: SODIUM CHLORIDE 0.9% INJ 3ML FLUSH IVF SCH ×3 (05:08→21:20)
[2019-10-20 06:14] LABS: BASOPHILS % 0.9 % (0.0-2.0); EOSINOPHILS % 2.1 % (0.0-5.0); HEMATOCRIT. 27.8 % (36.0-48.0); HEMOGLOBIN. 8.9 g/dL (12.0-16.0); LYMPHOCYTES % 8.2 % (20.0-50.0); MEAN CORPUSCULAR HEMOGLOBIN 27.3 pg (28.0-32.0); MEAN PLATELET VOLUME 9.2 fl (7.4-10.4); NEUTROPHILS % 81.8 % (40.0-76.0); PLATELET 253 x1000/uL (130-400); RED BLOOD CELL COUNT 3.27 mill/uL (4.2-5.4); RED CELL DISTRIBUTION WIDTH 16.9 % (11.6-14.6)
[2019-10-20 06:23] LABS: CHLORIDE 90 mEq/L (98-107)
[2019-10-20 06:32] LABS: VANCOMYCIN TROUGH 31.8 ug/mL (5.0-10.0)
[2019-10-20] MEDS: PANTOPRAZOLE SODIUM 40 MG/VIAL IV SCH (08:41)
[2019-10-20] MEDS: QUETIAPINE FUMARATE 25MG TABLET PO SCH (08:41)
[2019-10-20] MEDS: FUROSEMIDE 40MG/4ML VIAL IVP SCH (08:41)
[2019-10-20] MEDS: INSULIN GLARGINE UD 100 UNITS/ML SYR SUBCUT SCH ×2 (10:38→21:20)
[2019-10-20] MEDS: CEFTRIAXONE 2 G in DEXTROSE 5% WATER 50 ML IV SCH (17:09)
[2019-10-20] MEDS: ACETAMINOPHEN 325MG TABLET PO PRN (19:43)
[2019-10-20] MEDS: MORPHINE SULFATE 2 MG/ML CPJ (NOT FOR IM USE) IV PRN (19:44)
[2019-10-20] MEDS: METRONIDAZOLE 500MG TABLET PO SCH (21:19)
[2019-10-20] MEDS: LORAZEPAM 2MG/ML CPJ IV PRN (23:01)
[2019-10-21] VITALS (48 sets, daily range): BP systolic 118–167; BP diastolic 58–95
[2019-10-21] MEDS: BLOOD SUGAR DIAGNOSTIC STRIP TEST SCH ×5 (00:02→23:41)
[2019-10-21] MEDS: IPRATROPIUM/ALBUTEROL 0.5-3(2.5)MG/3ML NEB HHN SCH ×4 (01:59→20:50)
[2019-10-21] MEDS: MORPHINE SULFATE 2 MG/ML CPJ (NOT FOR IM USE) IV PRN ×2 (02:53→17:17)
[2019-10-21] MEDS: DIPHENHYDRAMINE 50MG/ML VIAL IV PRN ×2 (02:53→23:41)
[2019-10-21 05:27] LABS: HEMOGLOBIN. 9.6 g/dL (12.0-16.0); MEAN CORPUSCULAR HEMOGLOBIN 27.2 pg (28.0-32.0); MEAN CORPUSCULAR VOLUME 85.3 fL (81.0-99.0); MEAN PLATELET VOLUME 8.6 fl (7.4-10.4); PLATELET 298 x1000/uL (130-400); RED BLOOD CELL COUNT 3.52 mill/uL (4.2-5.4); RED CELL DISTRIBUTION WIDTH 16.8 % (11.6-14.6)
[2019-10-21] MEDS: SODIUM CHLORIDE 0.9% INJ 3ML FLUSH IVF SCH ×3 (06:07→21:43)
[2019-10-21] MEDS: INSULIN LISPRO 100 UNITS/ML SUBCUT SCH ×5 (06:08→23:42)
[2019-10-21 06:28] LABS: CHLORIDE 92 mEq/L (98-107)
[2019-10-21] MEDS: LORAZEPAM 2MG/ML CPJ IV PRN ×3 (06:54→22:33)
[2019-10-21 08:28] LABS: PLATELET ESTIMATE NORMAL
[2019-10-21] MEDS: PANTOPRAZOLE SODIUM 40 MG/VIAL IV SCH (08:50)
[2019-10-21] MEDS: METRONIDAZOLE 500MG TABLET PO SCH ×2 (08:50→21:43)
[2019-10-21] MEDS: FUROSEMIDE 40MG/4ML VIAL IVP SCH (08:50)
[2019-10-21] MEDS: CEFTRIAXONE 2 G in DEXTROSE 5% WATER 50 ML IV SCH (08:50)
[2019-10-21 09:55] LABS: BG BASE EXCESS 18.2 mmol/L (-2.0-2.0); BG CARBOXYHEMOGLOBIN 0.1 % (0.5-1.5); BG DEOXYHEMOGLOBIN 9.1 % (0.0-5.0); BG FRACTION INSPIRED OXYGEN 50; BG HCO3 ACT 44.2 mmol/L (22.0-26.0); BG METHEMOGLOBIN 0.1 % (0.0-1.5); BG OXYGEN SATURATION 90.9 % (92.0-98.5); BG OXYHEMOGLOBIN 90.7 % (94.0-97.0); BG PCO2 61.2 mmHg (35.0-45.0); BG PH 7.477 (7.350-7.450); BG PO2 61.4 mmHg (75.0-100.0); BG SAMPLE SITE RIGHT BRACHIAL; BG TIDAL VOLUME(mL) 550 mL; BG TOTAL HEMOGLOBIN 9.7 g/dL (12.0-18.0); BG VENT MODE VENT - A/C; BG VENT RATE 14 set
[2019-10-21] MEDS: INSULIN GLARGINE UD 100 UNITS/ML SYR SUBCUT SCH ×2 (10:59→22:42)
[2019-10-22] VITALS (30 sets, daily range): BP systolic 100–174; BP diastolic 48–99
[2019-10-22] MEDS: MORPHINE SULFATE 2 MG/ML CPJ (NOT FOR IM USE) IV PRN (01:33)
[2019-10-22] MEDS: LORAZEPAM 2MG/ML CPJ IV PRN ×4 (02:42→22:04)
[2019-10-22] MEDS: SODIUM CHLORIDE 0.9% INJ 3ML FLUSH IVF SCH ×3 (05:08→21:06)
[2019-10-22] MEDS: BLOOD SUGAR DIAGNOSTIC STRIP TEST SCH ×3 (05:54→17:35)
[2019-10-22] MEDS: INSULIN LISPRO 100 UNITS/ML SUBCUT SCH ×3 (06:02→17:35)
[2019-10-22] MEDS: METRONIDAZOLE 500MG TABLET PO SCH ×2 (08:22→20:00)
[2019-10-22] MEDS: FUROSEMIDE 40MG/4ML VIAL IVP SCH (08:22)
[2019-10-22] MEDS: PANTOPRAZOLE SODIUM 40 MG/VIAL IV SCH (08:22)
[2019-10-22] MEDS: CEFTRIAXONE 2 G in DEXTROSE 5% WATER 50 ML IV SCH (08:22)
[2019-10-22] MEDS: IPRATROPIUM/ALBUTEROL 0.5-3(2.5)MG/3ML NEB HHN SCH ×3 (09:22→20:16)
[2019-10-22 09:48] LABS: BG CARBOXYHEMOGLOBIN 0.2 % (0.5-1.5); BG DEOXYHEMOGLOBIN 5.8 % (0.0-5.0); BG FRACTION INSPIRED OXYGEN 50; BG HCO3 ACT 46.9 mmol/L (22.0-26.0); BG OXYGEN SATURATION 94.2 % (92.0-98.5); BG PCO2 96.1 mmHg (35.0-45.0); BG PH 7.306 (7.350-7.450); BG PO2 80.6 mmHg (75.0-100.0); BG PRESSURE SUPPORT 12; BG SAMPLE SITE RIGHT BRACHIAL; BG TIDAL VOLUME(mL) 550 mL; BG TOTAL HEMOGLOBIN 10.4 g/dL (12.0-18.0); BG VENT MODE VENT - SIMV; BG VENT RATE 10 set
[2019-10-22 10:19] LABS: BASOPHILS % 1.1 % (0.0-2.0); EOSINOPHILS % 1.4 % (0.0-5.0); HEMATOCRIT. 29.8 % (36.0-48.0); HEMOGLOBIN. 9.4 g/dL (12.0-16.0); LYMPHOCYTES % 8.4 % (20.0-50.0); MEAN CORPUSCULAR HEMOGLOBIN 27.2 pg (28.0-32.0); MEAN CORPUSCULAR VOLUME 86.5 fL (81.0-99.0); MEAN PLATELET VOLUME 8.8 fl (7.4-10.4); MONOCYTES % 7.8 % (2.0-8.0); NEUTROPHILS % 81.3 % (40.0-76.0); PLATELET 376 x1000/uL (130-400); RED BLOOD CELL COUNT 3.45 mill/uL (4.2-5.4); RED CELL DISTRIBUTION WIDTH 16.3 % (11.6-14.6)
[2019-10-22] MEDS: INSULIN GLARGINE UD 100 UNITS/ML SYR SUBCUT SCH ×2 (10:22→21:35)
[2019-10-22 10:37] LABS: CHLORIDE 96 mEq/L (98-107)
[2019-10-22] MEDS: FENTANYL CITRATE/PF 500 MCG in SODIUM CHLORIDE 0.9% 40 ML IV PRN ×3 (13:06→22:50)
[2019-10-22] MEDS: RISPERIDONE 0.5MG TABLET PO SCH (16:48)
[2019-10-22] MEDS: DIPHENHYDRAMINE 50MG/ML VIAL IV PRN (19:59)
[2019-10-23] VITALS (29 sets, daily range): BP systolic 98–134; BP diastolic 51–73
[2019-10-23] MEDS: IPRATROPIUM/ALBUTEROL 0.5-3(2.5)MG/3ML NEB HHN SCH ×4 (02:09→20:47)
[2019-10-23] MEDS: LORAZEPAM 2MG/ML CPJ IV PRN ×5 (02:51→23:23)
[2019-10-23] MEDS: SODIUM CHLORIDE 0.9% INJ 3ML FLUSH IVF SCH ×3 (05:15→22:51)
[2019-10-23] MEDS: BLOOD SUGAR DIAGNOSTIC STRIP TEST SCH ×5 (05:19→23:54)
[2019-10-23] MEDS: INSULIN LISPRO 100 UNITS/ML SUBCUT SCH ×5 (05:23→23:55)
[2019-10-23] MEDS: FENTANYL CITRATE/PF 500 MCG in SODIUM CHLORIDE 0.9% 40 ML IV PRN ×4 (05:47→23:23)
[2019-10-23 06:15] LABS: EOSINOPHILS % 2.7 % (0.0-5.0); HEMATOCRIT. 29.4 % (36.0-48.0); HEMOGLOBIN. 9.1 g/dL (12.0-16.0); LYMPHOCYTES % 20.8 % (20.0-50.0); MEAN CORPUSCULAR HEMOGLOBIN 26.8 pg (28.0-32.0); MEAN CORPUSCULAR VOLUME 86.2 fL (81.0-99.0); MEAN PLATELET VOLUME 8.6 fl (7.4-10.4); MONOCYTES % 9.8 % (2.0-8.0); NEUTROPHILS % 65.7 % (40.0-76.0); PLATELET 388 x1000/uL (130-400); RED BLOOD CELL COUNT 3.41 mill/uL (4.2-5.4); RED CELL DISTRIBUTION WIDTH 16.6 % (11.6-14.6)
[2019-10-23 06:28] LABS: CHLORIDE 99 mEq/L (98-107)
[2019-10-23] MEDS: CEFTRIAXONE 2 G in DEXTROSE 5% WATER 50 ML IV SCH (08:33)
[2019-10-23] MEDS: RISPERIDONE 0.5MG TABLET PO SCH ×2 (08:33→16:00)
[2019-10-23] MEDS: PANTOPRAZOLE SODIUM 40 MG/VIAL IV SCH (08:33)
[2019-10-23] MEDS: FUROSEMIDE 40MG/4ML VIAL IVP SCH (08:33)
[2019-10-23] MEDS: METRONIDAZOLE 500MG TABLET PO SCH ×2 (08:33→21:09)
[2019-10-23] MEDS: INSULIN GLARGINE UD 100 UNITS/ML SYR SUBCUT SCH ×2 (10:09→23:02)
[2019-10-23 10:16] LABS: BG BASE EXCESS 18.5 mmol/L (-2.0-2.0); BG CARBOXYHEMOGLOBIN 0.3 % (0.5-1.5); BG DEOXYHEMOGLOBIN 5.5 % (0.0-5.0); BG FRACTION INSPIRED OXYGEN 50; BG HCO3 ACT 44.3 mmol/L (22.0-26.0); BG METHEMOGLOBIN 0.2 % (0.0-1.5); BG OXYGEN SATURATION 94.5 % (92.0-98.5); BG PCO2 60.2 mmHg (35.0-45.0); BG PH 7.485 (7.350-7.450); BG PO2 73.1 mmHg (75.0-100.0); BG SAMPLE SITE RIGHT RADIAL; BG TIDAL VOLUME(mL) 550 mL; BG TOTAL HEMOGLOBIN 9.7 g/dL (12.0-18.0); BG VENT MODE VENT - A/C; BG VENT RATE 14 set
[2019-10-23] MEDS: DIPHENHYDRAMINE 50MG/ML VIAL IV PRN ×2 (10:44→21:09)
[2019-10-23] MEDS: POTASSIUM CHLORIDE 20MEQ/PACKET PO SCH (11:53)
[2019-10-23] MEDS: ACETAMINOPHEN 325MG TABLET PO PRN (16:00)
[2019-10-23] MEDS: DOCUSATE SODIUM SUGAR FREE 100MG/10ML UDC NG SCH (16:05)
[2019-10-24] VITALS (43 sets, daily range): BP systolic 95–142; BP diastolic 44–92
[2019-10-24] MEDS: IPRATROPIUM/ALBUTEROL 0.5-3(2.5)MG/3ML NEB HHN SCH ×4 (02:37→20:25)
[2019-10-24] MEDS: SODIUM CHLORIDE 0.9% INJ 3ML FLUSH IVF SCH ×3 (05:35→21:44)
[2019-10-24] MEDS: BLOOD SUGAR DIAGNOSTIC STRIP TEST SCH ×3 (05:35→17:22)
[2019-10-24] MEDS: INSULIN LISPRO 100 UNITS/ML SUBCUT SCH ×4 (06:04→23:29)
[2019-10-24] MEDS: FENTANYL CITRATE/PF 500 MCG in SODIUM CHLORIDE 0.9% 40 ML IV PRN ×3 (06:23→15:57)
[2019-10-24 06:36] LABS: CHLORIDE 102 mEq/L (98-107)
[2019-10-24 06:37] LABS: HEMOGLOBIN. 9.4 g/dL (12.0-16.0); MEAN CORPUSCULAR HEMOGLOBIN 26.9 pg (28.0-32.0); MEAN CORPUSCULAR VOLUME 85.6 fL (81.0-99.0); MEAN PLATELET VOLUME 8.7 fl (7.4-10.4); PLATELET 396 x1000/uL (130-400); RED BLOOD CELL COUNT 3.51 mill/uL (4.2-5.4); RED CELL DISTRIBUTION WIDTH 16.8 % (11.6-14.6)
[2019-10-24] MEDS: CEFTRIAXONE 2 G in DEXTROSE 5% WATER 50 ML IV SCH (08:46)
[2019-10-24] MEDS: METRONIDAZOLE 500MG TABLET PO SCH ×2 (08:46→21:44)
[2019-10-24] MEDS: DOCUSATE SODIUM SUGAR FREE 100MG/10ML UDC NG SCH ×2 (08:46→16:52)
[2019-10-24] MEDS: RISPERIDONE 0.5MG TABLET PO SCH ×2 (08:46→16:52)
[2019-10-24] MEDS: POTASSIUM CHLORIDE 20MEQ/PACKET PO SCH (08:46)
[2019-10-24] MEDS: PANTOPRAZOLE SODIUM 40 MG/VIAL IV SCH (08:47)
[2019-10-24] MEDS: FUROSEMIDE 40MG/4ML VIAL IVP SCH (08:47)
[2019-10-24] MEDS: LORAZEPAM 2MG/ML CPJ IV PRN ×3 (08:57→20:07)
[2019-10-24 09:31] LABS: BG CARBOXYHEMOGLOBIN 0.2 % (0.5-1.5); BG DEOXYHEMOGLOBIN 7.4 % (0.0-5.0); BG FRACTION INSPIRED OXYGEN 50; BG HCO3 ACT 38.7 mmol/L (22.0-26.0); BG METHEMOGLOBIN 0.2 % (0.0-1.5); BG OXYGEN SATURATION 92.6 % (92.0-98.5); BG OXYHEMOGLOBIN 92.2 % (94.0-97.0); BG PCO2 55.9 mmHg (35.0-45.0); BG PH 7.458 (7.350-7.450); BG PO2 67.3 mmHg (75.0-100.0); BG SAMPLE SITE RIGHT RADIAL; BG TIDAL VOLUME(mL) 550 mL; BG TOTAL HEMOGLOBIN 10.2 g/dL (12.0-18.0); BG VENT MODE VENT - A/C; BG VENT RATE 14 set
[2019-10-24] MEDS: INSULIN GLARGINE UD 100 UNITS/ML SYR SUBCUT SCH ×2 (10:37→21:43)
[2019-10-24 11:56] LABS: PLATELET ESTIMATE NORMAL
[2019-10-24] MEDS: DEXT 5%/0.45% NACL KCL 10MEQ/L 1,000 ML IV NR (18:23)
[2019-10-24] MEDS: SILDENAFIL CITRATE 20MG TABLET NG SCH (21:43)
[2019-10-24] MEDS ORDERED: FENTANYL CITRATE/PF 1,000 MCG in SODIUM CHLORIDE 0.9% 80 ML IV PRN (22:06)
[2019-10-24] MEDS: ACETAMINOPHEN 325MG TABLET PO PRN (23:31)
[2019-10-24] MEDS: MORPHINE SULFATE 2 MG/ML CPJ (NOT FOR IM USE) IV PRN (23:38)
[2019-10-25] VITALS (42 sets, daily range): BP systolic 96–152; BP diastolic 48–100
[2019-10-25] MEDS: LORAZEPAM 2MG/ML CPJ IM PRN ×2 (00:31→04:47)
[2019-10-25] MEDS: IPRATROPIUM/ALBUTEROL 0.5-3(2.5)MG/3ML NEB HHN SCH ×4 (02:34→20:20)
[2019-10-25] MEDS: DEXT 5%/0.45% NACL KCL 10MEQ/L 1,000 ML IV NR (04:00)
[2019-10-25] MEDS: SODIUM CHLORIDE 0.9% INJ 3ML FLUSH IVF SCH ×3 (05:43→22:50)
[2019-10-25] MEDS: BLOOD SUGAR DIAGNOSTIC STRIP TEST SCH ×3 (05:43→12:14)
[2019-10-25] MEDS: SILDENAFIL CITRATE 20MG TABLET NG SCH ×3 (05:51→22:00)
[2019-10-25] MEDS: INSULIN LISPRO 100 UNITS/ML SUBCUT SCH ×3 (05:52→17:38)
[2019-10-25 07:22] LABS: HEMATOCRIT. 29.6 % (36.0-48.0); HEMOGLOBIN. 9.2 g/dL (12.0-16.0); MEAN CORPUSCULAR HEMOGLOBIN 26.7 pg (28.0-32.0); MEAN CORPUSCULAR VOLUME 86.1 fL (81.0-99.0); MEAN PLATELET VOLUME 8.8 fl (7.4-10.4); PLATELET 409 x1000/uL (130-400); RED BLOOD CELL COUNT 3.44 mill/uL (4.2-5.4); RED CELL DISTRIBUTION WIDTH 16.9 % (11.6-14.6)
[2019-10-25 08:04] LABS: CHLORIDE 105 mEq/L (98-107)
[2019-10-25] MEDS: PANTOPRAZOLE SODIUM 40 MG/VIAL IV SCH (08:50)
[2019-10-25] MEDS: DOCUSATE SODIUM SUGAR FREE 100MG/10ML UDC NG SCH ×3 (08:51→17:36)
[2019-10-25] MEDS: POTASSIUM CHLORIDE 20MEQ/PACKET PO SCH ×2 (08:51→11:15)
[2019-10-25] MEDS: CEFTRIAXONE 2 G in DEXTROSE 5% WATER 50 ML IV SCH (08:51)
[2019-10-25] MEDS: METRONIDAZOLE 500MG TABLET PO SCH ×3 (08:51→20:30)
[2019-10-25] MEDS: RISPERIDONE 0.5MG TABLET PO SCH ×3 (08:52→17:37)
[2019-10-25 10:35] LABS: PLATELET ESTIMATE SLIGHTLY INCREASED
[2019-10-25] MEDS: INSULIN GLARGINE UD 100 UNITS/ML SYR SUBCUT SCH ×2 (11:16→23:55)
[2019-10-25 13:57] LABS: BG BASE EXCESS 9.3 mmol/L (-2.0-2.0); BG CARBOXYHEMOGLOBIN 0.3 % (0.5-1.5); BG DEOXYHEMOGLOBIN 5.6 % (0.0-5.0); BG FRACTION INSPIRED OXYGEN 50; BG HCO3 ACT 35.8 mmol/L (22.0-26.0); BG METHEMOGLOBIN 0.1 % (0.0-1.5); BG OXYGEN SATURATION 94.4 % (92.0-98.5); BG PCO2 60.1 mmHg (35.0-45.0); BG PH 7.393 (7.350-7.450); BG PO2 80.3 mmHg (75.0-100.0); BG SAMPLE SITE RIGHT BRACHIAL; BG TIDAL VOLUME(mL) 550 mL; BG TOTAL HEMOGLOBIN 10.4 g/dL (12.0-18.0); BG VENT MODE VENT - A/C; BG VENT RATE 14 set
[2019-10-25] MEDS: LORAZEPAM 2MG/ML CPJ IV PRN ×2 (14:53→20:12)
[2019-10-25] MEDS: MORPHINE SULFATE 2 MG/ML CPJ (NOT FOR IM USE) IV PRN (15:26)
[2019-10-26] VITALS (13 sets, daily range): BP systolic 114–158; BP diastolic 57–94
[2019-10-26] MEDS: BLOOD SUGAR DIAGNOSTIC STRIP TEST SCH ×4 (00:02→17:16)
[2019-10-26] MEDS: LORAZEPAM 2MG/ML CPJ IV PRN ×4 (01:07→20:59)
[2019-10-26] MEDS: DIPHENHYDRAMINE 50MG/ML VIAL IV PRN ×3 (01:08→21:39)
[2019-10-26] MEDS: IPRATROPIUM/ALBUTEROL 0.5-3(2.5)MG/3ML NEB HHN SCH ×3 (01:20→21:33)
[2019-10-26] MEDS: MORPHINE SULFATE 2 MG/ML CPJ (NOT FOR IM USE) IV PRN ×3 (05:48→21:39)
[2019-10-26] MEDS: SILDENAFIL CITRATE 20MG TABLET NG SCH ×3 (05:56→22:00)
[2019-10-26] MEDS: INSULIN LISPRO 100 UNITS/ML SUBCUT SCH ×4 (05:56→18:00)
[2019-10-26] MEDS: SODIUM CHLORIDE 0.9% INJ 3ML FLUSH IVF SCH ×3 (05:56→22:00)
[2019-10-26 06:53] LABS: HEMATOCRIT 31.2 % (36.0-48.0); HEMOGLOBIN 9.4 g/dL (12.0-16.0); MEAN CORPUSCULAR VOLUME 86.2 fL (81.0-99.0); PLATELET 465 x1000/uL (130-400); RED BLOOD CELL COUNT 3.62 mill/uL (4.2-5.4); RED CELL DISTRIBUTION WIDTH 16.9 % (11.6-14.6)
[2019-10-26 07:25] LABS: INR 1.1; PARTIAL THROMBOPLASTIN TIME 26.1 sec (23.4-31.0); PROTHROMBIN TIME 11.9 sec (9.6-11.0)
[2019-10-26 07:44] LABS: CHLORIDE 109 mEq/L (98-107)
[2019-10-26] MEDS: RISPERIDONE 0.5MG TABLET PO SCH ×2 (09:00→17:00)
[2019-10-26] MEDS: POTASSIUM CHLORIDE 20MEQ/PACKET PO SCH (09:00)
[2019-10-26] MEDS: METRONIDAZOLE 500MG TABLET PO SCH ×2 (09:00→21:00)
[2019-10-26] MEDS: DOCUSATE SODIUM SUGAR FREE 100MG/10ML UDC NG SCH ×2 (09:00→17:00)
[2019-10-26] MEDS: PANTOPRAZOLE SODIUM 40 MG/VIAL IV SCH (09:00)
[2019-10-26 09:18] LABS: BG CARBOXYHEMOGLOBIN 0.3 % (0.5-1.5); BG DEOXYHEMOGLOBIN 2.4 % (0.0-5.0); BG FRACTION INSPIRED OXYGEN 50; BG HCO3 ACT 35.3 mmol/L (22.0-26.0); BG METHEMOGLOBIN 0.3 % (0.0-1.5); BG OXYGEN SATURATION 97.6 % (92.0-98.5); BG PCO2 58.2 mmHg (35.0-45.0); BG PH 7.401 (7.350-7.450); BG PO2 105.8 mmHg (75.0-100.0); BG SAMPLE SITE RIGHT RADIAL; BG TIDAL VOLUME(mL) 550 mL; BG TOTAL HEMOGLOBIN 10.4 g/dL (12.0-18.0); BG VENT MODE VENT - A/C; BG VENT RATE 12 set
[2019-10-26] MEDS ORDERED: CEFAZOLIN 1000MG PREMIX 50 ML IV ONE (09:45)
[2019-10-26] MEDS: IPRATROPIUM/ALBUTEROL 0.5-3(2.5)MG/3ML NEB HHN PRN (11:02)
[2019-10-26] MEDS: INSULIN GLARGINE UD 100 UNITS/ML SYR SUBCUT SCH (12:05)
[2019-10-26 13:08] LABS: BG BASE EXCESS 5.1 mmol/L (-2.0-2.0); BG CARBOXYHEMOGLOBIN 0.3 % (0.5-1.5); BG DEOXYHEMOGLOBIN 10.1 % (0.0-5.0); BG FRACTION INSPIRED OXYGEN 40; BG HCO3 ACT 31.9 mmol/L (22.0-26.0); BG OXYGEN SATURATION 89.9 % (92.0-98.5); BG OXYHEMOGLOBIN 89.6 % (94.0-97.0); BG PH 7.351 (7.350-7.450); BG PO2 65.5 mmHg (75.0-100.0); BG PRESSURE SUPPORT 8; BG SAMPLE SITE RIGHT RADIAL; BG TOTAL HEMOGLOBIN 10.5 g/dL (12.0-18.0); BG VENT MODE VENT - CPAP
[2019-10-26] MEDS: ONDANSETRON HCL 4MG/2ML INJ IV PRN (14:28)
[2019-10-26] MEDS: CEFTRIAXONE 1 G PREMIX 50 ML IV SCH (17:15)
[2019-10-26] MEDS: HALOPERIDOL LACTATE 5MG/ML VIAL IM PRN (20:07)
[2019-10-26] MEDS: DEXTROSE 5% WATER 1,000 ML IV SCH (22:03)
[2019-10-27] VITALS (12 sets, daily range): BP systolic 107–141; BP diastolic 68–83
[2019-10-27] MEDS: INSULIN LISPRO 100 UNITS/ML SUBCUT SCH ×4 (00:07→17:21)
[2019-10-27] MEDS: INSULIN GLARGINE UD 100 UNITS/ML SYR SUBCUT SCH ×3 (00:07→21:35)
[2019-10-27] MEDS: IPRATROPIUM/ALBUTEROL 0.5-3(2.5)MG/3ML NEB HHN SCH ×4 (01:52→20:37)
[2019-10-27] MEDS: MORPHINE SULFATE 2 MG/ML CPJ (NOT FOR IM USE) IV PRN ×3 (04:02→21:36)
[2019-10-27] MEDS: SODIUM CHLORIDE 0.9% INJ 3ML FLUSH IVF SCH ×3 (05:38→20:54)
[2019-10-27] MEDS: SILDENAFIL CITRATE 20MG TABLET NG SCH ×3 (05:38→20:54)
[2019-10-27] MEDS: BLOOD SUGAR DIAGNOSTIC STRIP TEST SCH ×4 (06:00→18:02)
[2019-10-27] MEDS: POTASSIUM CHLORIDE 20MEQ/PACKET PO SCH (09:00)
[2019-10-27] MEDS: DOCUSATE SODIUM SUGAR FREE 100MG/10ML UDC NG SCH ×2 (09:00→17:00)
[2019-10-27] MEDS: METRONIDAZOLE 500MG TABLET PO SCH ×2 (09:00→20:54)
[2019-10-27] MEDS: RISPERIDONE 0.5MG TABLET PO SCH ×2 (09:00→17:00)
[2019-10-27] MEDS: LORAZEPAM 2MG/ML CPJ IV PRN (09:50)
[2019-10-27] MEDS: PANTOPRAZOLE SODIUM 40 MG/VIAL IV SCH (10:18)
[2019-10-27] MEDS: DEXTROSE 5% WATER 1,000 ML IV SCH ×2 (10:19→21:35)
[2019-10-27] MEDS: CEFTRIAXONE 1 G PREMIX 50 ML IV SCH (18:40)
[2019-10-28] VITALS (12 sets, daily range): BP systolic 105–153; BP diastolic 58–79
[2019-10-28] MEDS: BLOOD SUGAR DIAGNOSTIC STRIP TEST SCH ×4 (00:25→18:20)
[2019-10-28] MEDS: LORAZEPAM 2MG/ML CPJ IV PRN ×4 (01:20→21:44)
[2019-10-28] MEDS: IPRATROPIUM/ALBUTEROL 0.5-3(2.5)MG/3ML NEB HHN SCH ×4 (01:52→20:05)
[2019-10-28] MEDS: SODIUM CHLORIDE 0.9% INJ 3ML FLUSH IVF SCH ×3 (05:55→21:42)
[2019-10-28] MEDS: SILDENAFIL CITRATE 20MG TABLET NG SCH ×3 (05:55→21:42)
[2019-10-28] MEDS: INSULIN LISPRO 100 UNITS/ML SUBCUT SCH ×4 (05:56→18:21)
[2019-10-28] MEDS: RISPERIDONE 0.5MG TABLET PO SCH ×2 (08:28→17:00)
[2019-10-28] MEDS: POTASSIUM CHLORIDE 20MEQ/PACKET PO SCH (08:28)
[2019-10-28] MEDS: PANTOPRAZOLE SODIUM 40 MG/VIAL IV SCH (08:35)
[2019-10-28] MEDS: DOCUSATE SODIUM SUGAR FREE 100MG/10ML UDC NG SCH ×2 (09:00→17:00)
[2019-10-28] MEDS: INSULIN GLARGINE UD 100 UNITS/ML SYR SUBCUT SCH ×2 (10:26→21:45)
[2019-10-28] MEDS: MORPHINE SULFATE 2 MG/ML CPJ (NOT FOR IM USE) IV PRN (13:06)
[2019-10-28] MEDS: DEXTROSE 5% WATER 1,000 ML IV SCH (16:28)
[2019-10-28] MEDS: CEFTRIAXONE 1 G PREMIX 50 ML IV SCH (16:29)
[2019-10-28] MEDS: DIPHENHYDRAMINE 50MG/ML VIAL IV PRN (21:44)
[2019-10-29] VITALS (12 sets, daily range): BP systolic 99–145; BP diastolic 31–82
[2019-10-29] MEDS: DEXTROSE 5% WATER 1,000 ML IV SCH ×2 (00:10→14:05)
[2019-10-29] MEDS: BLOOD SUGAR DIAGNOSTIC STRIP TEST SCH ×5 (00:10→23:37)
[2019-10-29] MEDS: LORAZEPAM 2MG/ML CPJ IV PRN ×2 (01:57→21:26)
[2019-10-29] MEDS: DIPHENHYDRAMINE 50MG/ML VIAL IV PRN ×2 (01:57→21:26)
[2019-10-29] MEDS: SILDENAFIL CITRATE 20MG TABLET NG SCH ×3 (05:12→21:18)
[2019-10-29] MEDS: SODIUM CHLORIDE 0.9% INJ 3ML FLUSH IVF SCH ×3 (05:12→21:18)
[2019-10-29] MEDS: INSULIN LISPRO 100 UNITS/ML SUBCUT SCH ×5 (05:30→23:37)
[2019-10-29] MEDS: IPRATROPIUM/ALBUTEROL 0.5-3(2.5)MG/3ML NEB HHN SCH ×4 (08:26→21:06)
[2019-10-29] MEDS: POTASSIUM CHLORIDE 20MEQ/PACKET PO SCH (09:00)
[2019-10-29] MEDS: DOCUSATE SODIUM SUGAR FREE 100MG/10ML UDC NG SCH ×2 (09:00→17:00)
[2019-10-29] MEDS: RISPERIDONE 0.5MG TABLET PO SCH ×2 (09:00→17:00)
[2019-10-29] MEDS: HALOPERIDOL LACTATE 5MG/ML VIAL IM PRN (09:51)
[2019-10-29] MEDS: MORPHINE SULFATE 2 MG/ML CPJ (NOT FOR IM USE) IV PRN (09:52)
[2019-10-29] MEDS: PANTOPRAZOLE SODIUM 40 MG/VIAL IV SCH (10:06)
[2019-10-29] MEDS: INSULIN GLARGINE UD 100 UNITS/ML SYR SUBCUT SCH ×2 (11:06→21:25)
[2019-10-29] MEDS: CEFTRIAXONE 1 G PREMIX 50 ML IV SCH (17:31)
[2019-10-30] VITALS (11 sets, daily range): BP systolic 101–127; BP diastolic 48–75
[2019-10-30] MEDS: ONDANSETRON HCL 4MG/2ML INJ IV PRN (01:03)
[2019-10-30] MEDS: MORPHINE SULFATE 2 MG/ML CPJ (NOT FOR IM USE) IV PRN ×2 (01:07→22:45)
[2019-10-30] MEDS: DEXTROSE 5% WATER 1,000 ML IV SCH ×3 (01:40→22:43)
[2019-10-30] MEDS: IPRATROPIUM/ALBUTEROL 0.5-3(2.5)MG/3ML NEB HHN SCH ×4 (02:39→20:30)
[2019-10-30] MEDS: SODIUM CHLORIDE 0.9% INJ 3ML FLUSH IVF SCH ×3 (05:33→21:38)
[2019-10-30] MEDS: INSULIN LISPRO 100 UNITS/ML SUBCUT SCH ×3 (05:33→17:13)
[2019-10-30] MEDS: BLOOD SUGAR DIAGNOSTIC STRIP TEST SCH ×3 (05:33→18:29)
[2019-10-30] MEDS: SILDENAFIL CITRATE 20MG TABLET NG SCH ×3 (05:33→21:46)
[2019-10-30] MEDS: PANTOPRAZOLE SODIUM 40 MG/VIAL IV SCH (08:30)
[2019-10-30] MEDS: DOCUSATE SODIUM SUGAR FREE 100MG/10ML UDC NG SCH ×2 (09:00→17:00)
[2019-10-30] MEDS: POTASSIUM CHLORIDE 20MEQ/PACKET PO SCH (10:30)
[2019-10-30] MEDS: RISPERIDONE 0.5MG TABLET PO SCH ×2 (10:30→17:12)
[2019-10-30] MEDS: INSULIN GLARGINE UD 100 UNITS/ML SYR SUBCUT SCH ×2 (10:31→21:52)
[2019-10-30] MEDS: CEFTRIAXONE 1 G PREMIX 50 ML IV SCH (16:58)
[2019-10-31] VITALS (10 sets, daily range): BP systolic 105–126; BP diastolic 56–76
[2019-10-31] MEDS: INSULIN LISPRO 100 UNITS/ML SUBCUT SCH ×5 (00:05→21:09)
[2019-10-31] MEDS: DEXTROSE 5% WATER 1,000 ML IV SCH (02:00)
[2019-10-31] MEDS: IPRATROPIUM/ALBUTEROL 0.5-3(2.5)MG/3ML NEB HHN SCH ×4 (02:54→20:58)
[2019-10-31] MEDS: SILDENAFIL CITRATE 20MG TABLET NG SCH ×3 (05:55→20:54)
[2019-10-31] MEDS: BLOOD SUGAR DIAGNOSTIC STRIP TEST SCH ×5 (05:56→21:00)
[2019-10-31] MEDS: SODIUM CHLORIDE 0.9% INJ 3ML FLUSH IVF SCH ×3 (05:56→20:54)
[2019-10-31] MEDS: RISPERIDONE 0.5MG TABLET PO SCH ×2 (08:27→17:55)
[2019-10-31] MEDS: PANTOPRAZOLE SODIUM 40 MG/VIAL IV SCH (08:27)
[2019-10-31] MEDS: DOCUSATE SODIUM SUGAR FREE 100MG/10ML UDC NG SCH ×2 (08:29→16:35)
[2019-10-31] MEDS: POTASSIUM CHLORIDE 20MEQ/PACKET PO SCH (08:29)
[2019-10-31] MEDS: INSULIN GLARGINE UD 100 UNITS/ML SYR SUBCUT SCH ×2 (10:00→21:00)
[2019-10-31] MEDS: AMOXICILLIN/POTASSIUM CLAVULANATE 500/125MG TAB PO SCH ×2 (15:02→20:54)
[2019-10-31] MEDS: MORPHINE SULFATE 2 MG/ML CPJ (NOT FOR IM USE) IV PRN (23:02)
[2019-11-01] VITALS (11 sets, daily range): BP systolic 107–135; BP diastolic 58–74
[2019-11-01] MEDS: IPRATROPIUM/ALBUTEROL 0.5-3(2.5)MG/3ML NEB HHN SCH ×4 (01:33→20:32)
[2019-11-01] MEDS: SODIUM CHLORIDE 0.9% INJ 3ML FLUSH IVF SCH ×3 (05:17→21:06)
[2019-11-01] MEDS: SILDENAFIL CITRATE 20MG TABLET NG SCH ×3 (05:25→21:00)
[2019-11-01] MEDS: AMOXICILLIN/POTASSIUM CLAVULANATE 500/125MG TAB PO SCH ×3 (05:25→21:00)
[2019-11-01] MEDS: BLOOD SUGAR DIAGNOSTIC STRIP TEST SCH ×4 (07:30→21:06)
[2019-11-01] MEDS: INSULIN LISPRO 100 UNITS/ML SUBCUT SCH ×4 (08:36→21:02)
[2019-11-01] MEDS: DOCUSATE SODIUM SUGAR FREE 100MG/10ML UDC NG SCH ×2 (08:37→17:00)
[2019-11-01] MEDS: POTASSIUM CHLORIDE 20MEQ/PACKET PO SCH (08:37)
[2019-11-01] MEDS: RISPERIDONE 0.5MG TABLET PO SCH ×2 (08:37→18:16)
[2019-11-01] MEDS: PANTOPRAZOLE SODIUM 40 MG/VIAL IV SCH (08:37)
[2019-11-01] MEDS: DEXTROSE 5% WATER 1,000 ML IV SCH (08:58)
[2019-11-01 10:40] LABS: BG BASE EXCESS 7.8 mmol/L (-2.0-2.0); BG CARBOXYHEMOGLOBIN 0.3 % (0.5-1.5); BG DEOXYHEMOGLOBIN 7.8 % (0.0-5.0); BG FRACTION INSPIRED OXYGEN 40; BG HCO3 ACT 32.9 mmol/L (22.0-26.0); BG METHEMOGLOBIN 0.2 % (0.0-1.5); BG OXYGEN SATURATION 92.2 % (92.0-98.5); BG OXYHEMOGLOBIN 91.7 % (94.0-97.0); BG PCO2 48.6 mmHg (35.0-45.0); BG PH 7.449 (7.350-7.450); BG PO2 63.9 mmHg (75.0-100.0); BG SAMPLE SITE RIGHT BRACHIAL; BG TOTAL HEMOGLOBIN 11.5 g/dL (12.0-18.0); BG VENT MODE MASK - TRACH
[2019-11-01] MEDS ORDERED: LIDOCAINE HCL/PF 1% 2ML VIAL ONE (11:11)
[2019-11-01] MEDS: INSULIN GLARGINE UD 100 UNITS/ML SYR SUBCUT SCH ×2 (13:30→21:02)
[2019-11-01] MEDS: METFORMIN HCL 500MG TABLET PO SCH (18:16)
[2019-11-02] VITALS (8 sets, daily range): BP systolic 103–128; BP diastolic 51–75
[2019-11-02] MEDS: IPRATROPIUM/ALBUTEROL 0.5-3(2.5)MG/3ML NEB HHN SCH ×4 (01:38→20:20)
[2019-11-02] MEDS: SODIUM CHLORIDE 0.9% INJ 3ML FLUSH IVF SCH ×3 (05:18→21:28)
[2019-11-02] MEDS: SILDENAFIL CITRATE 20MG TABLET NG SCH ×3 (05:18→21:27)
[2019-11-02] MEDS: AMOXICILLIN/POTASSIUM CLAVULANATE 500/125MG TAB PO SCH ×3 (05:18→22:14)
[2019-11-02 06:37] LABS: HEMATOCRIT 31.5 % (36.0-48.0); HEMOGLOBIN 9.9 g/dL (12.0-16.0); MEAN CORPUSCULAR HEMOGLOBIN 26.2 pg (28.0-32.0); PLATELET 296 x1000/uL (130-400); RED BLOOD CELL COUNT 3.79 mill/uL (4.2-5.4); RED CELL DISTRIBUTION WIDTH 17.2 % (11.6-14.6)
[2019-11-02 07:19] LABS: CHLORIDE 101 mEq/L (98-107)
[2019-11-02] MEDS: INSULIN LISPRO 100 UNITS/ML SUBCUT SCH ×4 (07:30→21:37)
[2019-11-02] MEDS: BLOOD SUGAR DIAGNOSTIC STRIP TEST SCH ×4 (08:10→21:28)
[2019-11-02] MEDS: RISPERIDONE 0.5MG TABLET PO SCH ×2 (08:59→18:21)
[2019-11-02] MEDS: METFORMIN HCL 500MG TABLET PO SCH ×2 (08:59→18:23)
[2019-11-02] MEDS: PANTOPRAZOLE SODIUM 40 MG/VIAL IV SCH (09:00)
[2019-11-02] MEDS: POTASSIUM CHLORIDE 20MEQ/PACKET PO SCH (09:00)
[2019-11-02] MEDS: DOCUSATE SODIUM SUGAR FREE 100MG/10ML UDC NG SCH ×2 (09:00→17:00)
[2019-11-02] MEDS: INSULIN GLARGINE UD 100 UNITS/ML SYR SUBCUT SCH ×2 (09:44→21:38)
[2019-11-02] MEDS: ONDANSETRON HCL 4MG/2ML INJ IV PRN (11:05)
[2019-11-02] MEDS: MORPHINE SULFATE 2 MG/ML CPJ (NOT FOR IM USE) IV PRN (19:08)
[2019-11-02] MEDS: IPRATROPIUM/ALBUTEROL 0.5-3(2.5)MG/3ML NEB HHN PRN (23:51)
[2019-11-03] VITALS (11 sets, daily range): BP systolic 103–116; BP diastolic 48–66
[2019-11-03] MEDS: IPRATROPIUM/ALBUTEROL 0.5-3(2.5)MG/3ML NEB HHN SCH ×4 (02:35→19:49)
[2019-11-03] MEDS: MORPHINE SULFATE 2 MG/ML CPJ (NOT FOR IM USE) IV PRN (05:26)
[2019-11-03] MEDS: DIPHENHYDRAMINE 50MG/ML VIAL IV PRN (05:42)
[2019-11-03] MEDS: SODIUM CHLORIDE 0.9% INJ 3ML FLUSH IVF SCH ×3 (05:43→21:22)
[2019-11-03] MEDS: AMOXICILLIN/POTASSIUM CLAVULANATE 500/125MG TAB PO SCH ×4 (05:44→21:21)
[2019-11-03] MEDS: SILDENAFIL CITRATE 20MG TABLET NG SCH ×4 (06:37→21:21)
[2019-11-03] MEDS: BLOOD SUGAR DIAGNOSTIC STRIP TEST SCH ×4 (06:37→21:00)
[2019-11-03] MEDS: INSULIN LISPRO 100 UNITS/ML SUBCUT SCH ×4 (06:39→21:28)
[2019-11-03] MEDS: METFORMIN HCL 500MG TABLET PO SCH ×2 (08:40→18:13)
[2019-11-03] MEDS: DOCUSATE SODIUM SUGAR FREE 100MG/10ML UDC NG SCH ×2 (08:40→17:00)
[2019-11-03] MEDS: POTASSIUM CHLORIDE 20MEQ/PACKET PO SCH (08:40)
[2019-11-03] MEDS: PANTOPRAZOLE SODIUM 40 MG/VIAL IV SCH (08:40)
[2019-11-03] MEDS: RISPERIDONE 0.5MG TABLET PO SCH ×2 (08:40→18:13)
[2019-11-03] MEDS: INSULIN GLARGINE UD 100 UNITS/ML SYR SUBCUT SCH ×2 (10:16→22:17)
[2019-11-03] MEDS ORDERED: FUROSEMIDE 40MG/4ML VIAL IVP SCH (13:45)
[2019-11-04] VITALS (10 sets, daily range): BP systolic 102–139; BP diastolic 49–72
[2019-11-04] MEDS: IPRATROPIUM/ALBUTEROL 0.5-3(2.5)MG/3ML NEB HHN SCH ×4 (01:54→21:20)
[2019-11-04] MEDS: AMOXICILLIN/POTASSIUM CLAVULANATE 500/125MG TAB PO SCH ×3 (06:14→21:39)
[2019-11-04] MEDS: SODIUM CHLORIDE 0.9% INJ 3ML FLUSH IVF SCH ×3 (06:14→21:40)
[2019-11-04] MEDS: SILDENAFIL CITRATE 20MG TABLET NG SCH ×3 (06:15→21:39)
[2019-11-04] MEDS: BLOOD SUGAR DIAGNOSTIC STRIP TEST SCH ×4 (06:15→21:41)
[2019-11-04] MEDS: INSULIN LISPRO 100 UNITS/ML SUBCUT SCH ×4 (07:26→21:00)
[2019-11-04] MEDS: METFORMIN HCL 500MG TABLET PO SCH ×2 (08:44→17:43)
[2019-11-04] MEDS: PANTOPRAZOLE SODIUM 40 MG/VIAL IV SCH (08:44)
[2019-11-04] MEDS: POTASSIUM CHLORIDE 20MEQ/PACKET PO SCH (08:45)
[2019-11-04] MEDS: DOCUSATE SODIUM SUGAR FREE 100MG/10ML UDC NG SCH ×2 (08:45→17:00)
[2019-11-04] MEDS: RISPERIDONE 0.5MG TABLET PO SCH ×2 (08:45→17:43)
[2019-11-04] MEDS: INSULIN GLARGINE UD 100 UNITS/ML SYR SUBCUT SCH ×2 (10:23→21:40)
[2019-11-04] MEDS: DIPHENHYDRAMINE 50MG/ML VIAL IV PRN ×2 (10:38→17:43)
[2019-11-04] MEDS ORDERED: FUROSEMIDE 40MG/4ML VIAL IVP SCH (11:30)
[2019-11-04 12:53] LABS: BG BASE EXCESS 8.1 mmol/L (-2.0-2.0); BG DEOXYHEMOGLOBIN 15.7 % (0.0-5.0); BG HCO3 ACT 32.4 mmol/L (22.0-26.0); BG METHEMOGLOBIN 0.2 % (0.0-1.5); BG OXYGEN SATURATION 84.3 % (92.0-98.5); BG OXYHEMOGLOBIN 84.1 % (94.0-97.0); BG PCO2 43.9 mmHg (35.0-45.0); BG PH 7.486 (7.350-7.450); BG PO2 47.7 mmHg (75.0-100.0); BG SAMPLE SITE RIGHT RADIAL; BG TOTAL HEMOGLOBIN 11.9 g/dL (12.0-18.0); BG VENT MODE ROOM AIR
[2019-11-05] VITALS (13 sets, daily range): BP systolic 102–124; BP diastolic 32–83
[2019-11-05] MEDS: IPRATROPIUM/ALBUTEROL 0.5-3(2.5)MG/3ML NEB HHN SCH ×4 (02:00→20:59)
[2019-11-05] MEDS: ONDANSETRON HCL 4MG/2ML INJ IV PRN (03:34)
[2019-11-05] MEDS: SILDENAFIL CITRATE 20MG TABLET NG SCH ×3 (06:00→21:52)
[2019-11-05] MEDS: AMOXICILLIN/POTASSIUM CLAVULANATE 500/125MG TAB PO SCH ×3 (06:00→21:51)
[2019-11-05] MEDS: SODIUM CHLORIDE 0.9% INJ 3ML FLUSH IVF SCH ×3 (06:00→21:51)
[2019-11-05] MEDS: BLOOD SUGAR DIAGNOSTIC STRIP TEST SCH ×4 (07:21→21:00)
[2019-11-05] MEDS: INSULIN LISPRO 100 UNITS/ML SUBCUT SCH ×4 (07:21→21:00)
[2019-11-05] MEDS: METFORMIN HCL 500MG TABLET PO SCH ×2 (08:05→17:09)
[2019-11-05] MEDS: RISPERIDONE 0.5MG TABLET PO SCH ×2 (08:05→16:03)
[2019-11-05] MEDS: ACETAMINOPHEN 325MG TABLET PO PRN ×2 (08:06→17:47)
[2019-11-05] MEDS: PANTOPRAZOLE SODIUM 40 MG/VIAL IV SCH (08:09)
[2019-11-05] MEDS: DOCUSATE SODIUM SUGAR FREE 100MG/10ML UDC NG SCH ×2 (08:09→16:03)
[2019-11-05] MEDS: POTASSIUM CHLORIDE 20MEQ/PACKET PO SCH (08:17)
[2019-11-05] MEDS: INSULIN GLARGINE UD 100 UNITS/ML SYR SUBCUT SCH ×3 (10:50→22:25)
[2019-11-06] VITALS (10 sets, daily range): BP systolic 106–121; BP diastolic 31–76
[2019-11-06] MEDS: ACETAMINOPHEN 325MG TABLET PO PRN ×3 (00:28→22:07)
[2019-11-06] MEDS: IPRATROPIUM/ALBUTEROL 0.5-3(2.5)MG/3ML NEB HHN SCH ×2 (02:50→20:17)
[2019-11-06] MEDS: DIPHENHYDRAMINE 50MG/ML VIAL IV PRN (03:05)
[2019-11-06] MEDS: SODIUM CHLORIDE 0.9% INJ 3ML FLUSH IVF SCH ×3 (05:09→22:01)
[2019-11-06] MEDS: SILDENAFIL CITRATE 20MG TABLET NG SCH ×3 (05:10→22:01)
[2019-11-06] MEDS: BLOOD SUGAR DIAGNOSTIC STRIP TEST SCH ×4 (07:30→21:54)
[2019-11-06] MEDS: INSULIN LISPRO 100 UNITS/ML SUBCUT SCH ×4 (07:30→21:00)
[2019-11-06] MEDS: DOCUSATE SODIUM SUGAR FREE 100MG/10ML UDC NG SCH ×2 (08:52→17:00)
[2019-11-06] MEDS: POTASSIUM CHLORIDE 20MEQ/PACKET PO SCH (08:52)
[2019-11-06] MEDS: RISPERIDONE 0.5MG TABLET PO SCH ×2 (08:52→17:00)
[2019-11-06] MEDS: METFORMIN HCL 500MG TABLET PO SCH ×2 (08:52→18:00)
[2019-11-06] MEDS: INSULIN GLARGINE UD 100 UNITS/ML SYR SUBCUT SCH ×2 (09:10→22:02)
[2019-11-06] MEDS: ONDANSETRON HCL 4MG/2ML INJ IV PRN (22:01)
[2019-11-07] VITALS (9 sets, daily range): BP systolic 98–111; BP diastolic 44–65
[2019-11-07] MEDS: IPRATROPIUM/ALBUTEROL 0.5-3(2.5)MG/3ML NEB HHN SCH ×4 (01:29→21:11)
[2019-11-07] MEDS: SILDENAFIL CITRATE 20MG TABLET NG SCH ×3 (06:00→22:58)
[2019-11-07] MEDS: SODIUM CHLORIDE 0.9% INJ 3ML FLUSH IVF SCH ×3 (06:10→20:26)
[2019-11-07] MEDS: INSULIN LISPRO 100 UNITS/ML SUBCUT SCH ×4 (07:30→20:26)
[2019-11-07] MEDS: BLOOD SUGAR DIAGNOSTIC STRIP TEST SCH ×4 (07:53→20:26)
[2019-11-07] MEDS: POTASSIUM CHLORIDE 20MEQ/PACKET PO SCH (08:45)
[2019-11-07] MEDS: DOCUSATE SODIUM SUGAR FREE 100MG/10ML UDC NG SCH ×2 (08:45→16:48)
[2019-11-07] MEDS: RISPERIDONE 0.5MG TABLET PO SCH ×2 (08:45→16:48)
[2019-11-07] MEDS: METFORMIN HCL 500MG TABLET PO SCH ×2 (09:27→17:32)
[2019-11-07] MEDS: INSULIN GLARGINE UD 100 UNITS/ML SYR SUBCUT SCH ×2 (09:28→22:59)
[2019-11-07] MEDS: AMOXICILLIN/POTASSIUM CLAVULANATE 500/125MG TAB PO SCH ×2 (15:46→22:57)
[2019-11-07] MEDS: DIPHENHYDRAMINE 50MG/ML VIAL IV PRN (20:26)
[2019-11-08] VITALS (9 sets, daily range): BP systolic 102–116; BP diastolic 51–74
[2019-11-08] MEDS: SODIUM CHLORIDE 0.9% INJ 3ML FLUSH IVF SCH ×2 (06:05→14:31)
[2019-11-08] MEDS: AMOXICILLIN/POTASSIUM CLAVULANATE 500/125MG TAB PO SCH ×2 (06:05→14:31)
[2019-11-08] MEDS: SILDENAFIL CITRATE 20MG TABLET NG SCH ×2 (06:05→14:25)
[2019-11-08] MEDS: INSULIN LISPRO 100 UNITS/ML SUBCUT SCH ×3 (07:30→17:30)
[2019-11-08] MEDS: BLOOD SUGAR DIAGNOSTIC STRIP TEST SCH ×3 (08:25→18:13)
[2019-11-08] MEDS: POTASSIUM CHLORIDE 20MEQ/PACKET PO SCH (08:55)
[2019-11-08] MEDS: RISPERIDONE 0.5MG TABLET PO SCH ×2 (08:55→17:00)
[2019-11-08] MEDS: METFORMIN HCL 500MG TABLET PO SCH ×2 (08:56→18:00)
[2019-11-08] MEDS: DOCUSATE SODIUM SUGAR FREE 100MG/10ML UDC NG SCH ×2 (08:57→17:00)
[2019-11-08] MEDS: IPRATROPIUM/ALBUTEROL 0.5-3(2.5)MG/3ML NEB HHN SCH ×2 (09:15→13:32)
[2019-11-08] MEDS: INSULIN GLARGINE UD 100 UNITS/ML SYR SUBCUT SCH (10:40)
== END 2019-11-08 19:05 | disposition home health service (06) | DRG 4 ==
LOC: ER 12:01 → 7WST 15:03 → ENRESERV 16:26 → 6WST 10-13 12:38 → CVICU 10-14 14:15 → 5EST 10-25 22:32
PROVIDERS: ADMIT Internal Medicine; ATTEND Internal Medicine
PROC: 5A1955Z Respiratory Ventilation, Greater than 96 Consecutive Hours (ICD-10-PCS; principal; 2019-10-14)
PROC: 0BH17EZ Insertion of Endotracheal Airway into Trachea, Via Natural or Artificial Opening (ICD-10-PCS; 2019-10-14)
PROC: 02HV33Z Insertion of Infusion Device into Superior Vena Cava, Percutaneous Approach (ICD-10-PCS; 2019-10-15)
PROC: B548ZZA Ultrasonography of Superior Vena Cava, Guidance (ICD-10-PCS; 2019-10-15)
PROC: 0W9930Z Drainage of Right Pleural Cavity with Drainage Device, Percutaneous Approach (ICD-10-PCS; 2019-10-15)
PROC: 30233N1 Transfusion of Nonautologous Red Blood Cells into Peripheral Vein, Percutaneous Approach (ICD-10-PCS; 2019-10-16)
PROC: 0B110F4 Bypass Trachea to Cutaneous with Tracheostomy Device, Open Approach (ICD-10-PCS; 2019-10-25)
PROC: 0GBJ0ZZ Excision of Thyroid Gland Isthmus, Open Approach (ICD-10-PCS; 2019-10-25)
DX: A41.51 Sepsis due to Escherichia coli [E. coli] (principal); J86.0 Pyothorax with fistula; E87.4 Mixed disorder of acid-base balance; E46 Unspecified protein-calorie malnutrition; J90 Pleural effusion, not elsewhere classified; J98.4 Other disorders of lung; E87.1 Hypo-osmolality and hyponatremia; E11.9 Type 2 diabetes mellitus without complications; D50.9 Iron deficiency anemia, unspecified; I27.20 Pulmonary hypertension, unspecified; J96.01 Acute respiratory failure with hypoxia; D64.9 Anemia, unspecified; D72.810 Lymphocytopenia; J43.9 Emphysema, unspecified; F17.210 Nicotine dependence, cigarettes, uncomplicated; Z20.828 Contact with and (suspected) exposure to other viral communicable diseases; I10 Essential (primary) hypertension; Z68.34 Body mass index [BMI] 34.0-34.9, adult; Z79.899 Other long term (current) drug therapy
CPT/HCPCS: 20611; 31500; 36415; 36600; 71045; 71250; 76937; 80048; 80053; 80202; 81003; 82375; 82805; 82962; 83036; 83605; 83615; 83880; 84155; 84484; 84703; 85025; 85027; 86850; 86900; 86920; 87070; 87077; 87186; 87635; 92610; 93005; 93306; 93970; 93971; 94003; 94640; 94644; 97110; 97116; 97162; 97166; 97530; 97535; 99285; C1725; C1729; C1769; C9113; J0696; J1200; J1630; J1650; J1815; J1940; J2060; J2250; J2270; J2405; J2543; J2930; J3010; J3370; J3490; J7030; J7050; J7060; J7070; P9016

== ENCOUNTER 2019-11-09 22:51 | Inpatient (IN) | payer MEDICAID ==
[~2019-11-09] VITALS: Ht 170.2 cm; Wt 96.2 kg
[2019-11-09] MEDS ORDERED: METHYLPREDNISOLONE SOD SUCC 125 MG/2 ML VIAL IV STA (23:25)
[2019-11-09] MEDS ORDERED: IPRATROPIUM BROMIDE (0.02%) 0.5MG/2.5ML NEB HHN STA (23:25)
[2019-11-09] MEDS ORDERED: ALBUTEROL (0.083%) 2.5MG/3ML NEB HHN STA (23:25)
[2019-11-09] MEDS ORDERED: GLUCAGON,HUMAN RECOMBINANT 1MG/VIAL IV ONE (23:30)
[2019-11-10] MEDS ORDERED: SODIUM CHLORIDE 0.9% 1000ML BAG (SEPSIS BOLUS) IV ONE (00:15)
[2019-11-10] MEDS ORDERED: VANCOMYCIN 1 G PREMIX 200 ML IV ONE (00:15)
[2019-11-10] MEDS ORDERED: PIPERACILLIN/TAZ 3.375G PREMIX 50 ML IV ONE (00:15)
[2019-11-10 00:25] LABS: HEMATOCRIT. 37.3 % (36.0-48.0); HEMOGLOBIN. 11.8 g/dL (12.0-16.0); MEAN CORPUSCULAR HEMOGLOBIN 26.4 pg (28.0-32.0); MEAN CORPUSCULAR VOLUME 83.4 fL (81.0-99.0); MEAN PLATELET VOLUME 8.2 fl (7.4-10.4); PLATELET 257 x1000/uL (130-400); RED BLOOD CELL COUNT 4.48 mill/uL (4.2-5.4); RED CELL DISTRIBUTION WIDTH 17.3 % (11.6-14.6)
[2019-11-10 00:28] LABS: CHLORIDE 100 mEq/L (98-107)
[2019-11-10 00:56] LABS: PLATELET ESTIMATE NORMAL
[2019-11-10 01:06] LABS: HCG SCREEN NEGATIVE
[2019-11-10 03:49] LABS: CLARITY URINE CLEAR (CLEAR); COLOR URINE YELLOW (YELLOW); KETONES URINE NEGATIVE (NEGATIVE); LEUKOCYTE ESTERASE URINE 1+ (NEGATIVE); NITRITE URINE NEGATIVE (NEGATIVE); OCCULT BLOOD URINE NEGATIVE (NEGATIVE); PROTEIN URINE NEGATIVE (NEGATIVE); SPECIFIC GRAVITY URINE 1.016 (1.005-1.030)
[2019-11-10] MEDS ORDERED: ONDANSETRON HCL 4MG/2ML INJ IV PRN (09:15)
[2019-11-10] MEDS ORDERED: ACETAMINOPHEN 325MG TABLET PO PRN (09:15)
[2019-11-10] MEDS ORDERED: BENZONATATE 100MG CAPSULE PO PRN (09:15)
[2019-11-10] MEDS: METHYLPREDNISOLONE SOD SUCC 40 MG/ML VIAL IV SCH ×2 (09:28→17:22)
[2019-11-10 12:59] VITALS: BP 135/67
[2019-11-10] MEDS ORDERED: IPRATROPIUM/ALBUTEROL 0.5-3(2.5)MG/3ML NEB HHN SCH (13:00)
[2019-11-10 14:00] VITALS: BP 134/69
[2019-11-10] MEDS: ENOXAPARIN 40MG/0.4ML SYR SUBCUT SCH (14:30)
[2019-11-10 17:36] VITALS: BP 123/68
[2019-11-10 20:00] VITALS: BP 124/79
[2019-11-10] MEDS ORDERED: IPRATROPIUM/ALBUTEROL 0.5-3(2.5)MG/3ML NEB HHN PRN (20:00)
[2019-11-10 22:00] VITALS: BP 114/67
[2019-11-10] MEDS: SILDENAFIL CITRATE 20MG TABLET PO SCH (22:21)
[2019-11-11] VITALS (8 sets, daily range): BP systolic 104–127; BP diastolic 51–95
[2019-11-11] MEDS: SILDENAFIL CITRATE 20MG TABLET PO SCH ×2 (07:41→13:25)
[2019-11-11] MEDS: ENOXAPARIN 40MG/0.4ML SYR SUBCUT SCH (09:00)
== END 2019-11-11 17:40 | disposition home health service (06) | DRG 133 ==
LOC: ER 22:51 → 5EST 11-10 01:33 → EDBEDREQSVC 11-10 09:23 → ENRESERV 11-10 12:01
PROVIDERS: ADMIT Internal Medicine; ATTEND Internal Medicine
DX: J96.20 Acute and chronic respiratory failure, unspecified whether with hypoxia or hypercapnia (principal); I27.20 Pulmonary hypertension, unspecified; Z93.0 Tracheostomy status; J44.1 Chronic obstructive pulmonary disease with (acute) exacerbation; F17.210 Nicotine dependence, cigarettes, uncomplicated; E11.9 Type 2 diabetes mellitus without complications; Z72.89 Other problems related to lifestyle; Z79.899 Other long term (current) drug therapy; Z71.6 Tobacco abuse counseling
CPT/HCPCS: 36415; 71045; 80053; 81003; 83605; 83880; 84484; 84703; 85025; 92610; 93005; 99285; J1610; J1650; J2405; J2543; J2920; J2930; J3370; J7030

== ENCOUNTER 2023-12-05 11:51 | Emergency (ER) | payer MEDICAID ==
[~2023-12-05] VITALS: Ht 167.6 cm; Wt 123.0 kg
[~2023-12-05 11:51] MED LIST changes: +FERR-63 PO; +FURO20TA4 PO; +GUAI600T44 PO; +MED4 MT; +METF-414 MT; +METO25TA6 PO; +[UNRECOGNIZED DRUG - CODE] IN
[2023-12-05 12:37] LABS: BASOPHILS % 0.6 % (0.0-2.0); DIFFERENTIAL COMMENT 0; EOSINOPHILS % 1.8 % (0.0-5.0); HEMATOCRIT. 29.5 % (36.0-48.0); HEMOGLOBIN. 8.7 g/dL (12.0-16.0); LYMPHOCYTES % 20.8 % (20.0-50.0); MEAN CORPUSCULAR HEMOGLOBIN 21.4 pg (28.0-32.0); MEAN CORPUSCULAR HGB CONC 29.5 g/dL (31.0-37.0); MEAN CORPUSCULAR VOLUME 72.6 fL (81.0-99.0); MEAN PLATELET VOLUME 7.8 fl (7.4-10.4); MONOCYTES % 7.6 % (2.0-8.0); NEUTROPHILS % 69.2 % (40.0-76.0); PLATELET 251 x1000/uL (130-400); RED BLOOD CELL COUNT 4.06 mill/uL (4.2-5.4); WHITE BLOOD COUNT 7.9 x1000/uL (4.5-11.0)
[2023-12-05 12:49] LABS: CHLORIDE 100 mEq/L (98-107); POTASSIUM 3.8 mEq/L (3.5-5.1); SODIUM 139 mEq/L (136-145)
[2023-12-05 12:50] LABS: CARBON DIOXIDE 33 mEq/L (21-32)
[2023-12-05 12:51] LABS: CALCIUM 8.6 mg/dL (8.7-10.4)
[2023-12-05 12:55] LABS: CREATININE 0.6 mg/dL (0.6-1.0); GLUCOSE 184 mg/dL (70-105)
[2023-12-05 12:56] LABS: UREA NITROGEN BLOOD 9 mg/dL (9-23)
[2023-12-05] MEDS: PREDNISONE 20MG TABLET PO ONE (13:15)
[2023-12-05 13:18] LABS: TROPONIN I HIGH SENSITIVITY < 4 ng/L (3.0-34)
[2023-12-05 13:45] VITALS: PULSE 90; RESP 20; O2SAT 100
[2023-12-05] MEDS: IPRATROPIUM/ALBUTEROL 0.5-3(2.5)MG/3ML NEB HHN ONE (13:45)
[2023-12-05 16:00] VITALS: BP 109/65; PULSE 88; RESP 22; TEMP 97.5
[2023-12-05] MEDS ORDERED: TIOT18CA3 INH (16:04)
[2023-12-05] MEDS ORDERED: AZIT250T12 MT (16:04)
[2023-12-05] MEDS ORDERED: ALBU90AE IH (16:04)
[2023-12-05] MEDS ORDERED: P50 MT (16:04)
[2023-12-05] MEDS ORDERED: TOPUD MT (16:04)
== END 2023-12-05 16:00 | disposition home or self-care (01) ==
LOC: ER 11:51
DX: J45.909 Unspecified asthma, uncomplicated (principal); Z79.899 Other long term (current) drug therapy
CPT/HCPCS: 80048; 85025; 84484; 36415; 71045; 94640; 93005; 99285; J7512; Z7610 ×3

== ENCOUNTER 2025-03-16 02:33 | Inpatient (IN) | payer OTHER ==
[2025-03-16] VITALS (8 sets, daily range): BP systolic 115–141; BP diastolic 48–82; PULSE 76–98; RESP 16–28; TEMP 36.1956–36.4; O2SAT 96–100
[~2025-03-16] VITALS: Ht 165.1 cm; Wt 121.1 kg
[~2025-03-16 02:33] MED LIST changes: +AZIT250T12 MT; -MED4 MT; +METH4TAB95 MT; +P50 MT; +TOPUD MT
[2025-03-16] MEDS: IPRATROPIUM BROMIDE (0.02%) 0.5MG/2.5ML NEB HHN ONE (02:35)
[2025-03-16] MEDS: ALBUTEROL (0.083%) 2.5MG/3ML NEB HHN ONE (02:35)
[2025-03-16] MEDS: METHYLPREDNISOLONE SOD SUCC 125MG/2ML (ACT-O-VIAL) IV ONE (02:55)
[2025-03-16 03:10] LABS: BASOPHILS % 1.7 % (0.0-2.0); EOSINOPHILS % 2.5 % (0.0-5.0); HEMATOCRIT. 29.8 % (36.0-48.0); HEMOGLOBIN. 8.3 g/dL (12.0-16.0); LYMPHOCYTES % 31.7 % (20.0-50.0); MEAN PLATELET VOLUME 8.7 fl (7.4-10.4); MONOCYTES % 9.1 % (2.0-8.0); NEUTROPHILS % 55.0 % (40.0-76.0); PLATELET 360 x1000/uL (130-400); RED BLOOD CELL COUNT 4.59 mill/uL (4.2-5.4); RED CELL DISTRIBUTION WIDTH 21.7 % (11.6-14.6)
[2025-03-16 03:16] LABS: ADD RBC MORPHOLOGY YES
[2025-03-16 03:17] LABS: INR 0.9
[2025-03-16 03:18] LABS: CREATININE 0.7 mg/dL (0.6-1.0); UREA NITROGEN BLOOD 7 mg/dL (9-23)
[2025-03-16 03:19] LABS: ETHANOL BLOOD < 10 mg/dL (<10); TROPONIN I HIGH SENSITIVITY < 4 ng/L (3.0-34)
[2025-03-16 03:20] LABS: ASPARTATE AMINOTRANSFERASE 16 IU/L (<34); BILIRUBIN DIRECT < 0.1 mg/dL (<=3.0)
[2025-03-16 03:21] LABS: BILIRUBIN TOTAL 0.3 mg/dL (0.1-1.0); PROTEIN TOTAL 7.0 g/dL (6.0-8.3)
[2025-03-16] MEDS: MAGNESIUM 2 G PREMIX 50 ML IV ONE (03:51)
[2025-03-16] MEDS: SODIUM CHLORIDE 0.9% 1,000 ML IV ONE (03:51)
[2025-03-16] MEDS ORDERED: VANCOMYCIN 1G PREMIX 200 ML IV NR (04:00)
[2025-03-16] MEDS: SODIUM CHLORIDE 0.9% (SEPSIS BOLUS) IV NR (04:01)
[2025-03-16 04:25] LABS: PLATELET ESTIMATE NORMAL
[2025-03-16] MEDS: PIPERACILLIN/TAZO 3.375G/50ML 50 ML IV NR (05:08)
[2025-03-16 06:07] LABS: CLARITY URINE CLOUDY (CLEAR); COLOR URINE RED (YELLOW); GLUCOSE URINE 2+ (NEGATIVE); KETONES URINE NEGATIVE (NEGATIVE); LEUKOCYTE ESTERASE URINE 1+ (NEGATIVE); NITRITE URINE NEGATIVE (NEGATIVE); OCCULT BLOOD URINE 3+ (NEGATIVE); PH URINE 5.5 (4.5-8.0); PROTEIN URINE 2+ (NEGATIVE); SPECIFIC GRAVITY URINE 1.010 (1.005-1.030); UROBILINOGEN URINE 0.2 E.U./dL (0.2-1.0)
[2025-03-16] MEDS: VANCOMYCIN 1G PREMIX 200 ML IV NR (06:09)
[2025-03-16 06:40] LABS: *AMPHETAMINES SCREEN URINE NEGATIVE (NEGATIVE); *BARBITURATES SCREEN URINE NEGATIVE (NEGATIVE); *BENZODIAZEPINES SCREEN URINE NEGATIVE (NEGATIVE); *COCAINE SCREEN URINE NEGATIVE (NEGATIVE); CANNABINOID URINE SCREEN NEGATIVE (NEGATIVE); ECSTASY MDMA SCREEN URINE NEGATIVE (NEGATIVE); METHADONE URINE SCREEN NEGATIVE (NEGATIVE); OPIATES URINE SCREEN NEGATIVE (NEGATIVE); PHENCYCLIDINE URINE SCREEN NEGATIVE (NEGATIVE)
[2025-03-16 06:58] LABS: BACTERIA URINE NONE SEEN; RBC URINE TNTC /hpf (0-2); SQUAMOUS EPITHELIAL CELL URINE NONE SEEN /lpf (RARE/1+)
[2025-03-16] MEDS ORDERED: DEXTROSE 50% WATER 50ML SYRINGE IV PRN (12:45)
[2025-03-16] MEDS ORDERED: ONDANSETRON HCL 4MG/2ML INJ IV PRN (12:45)
[2025-03-16] MEDS: INSULIN LISPRO 100 UNITS/ML SUBCUT SCH (12:50)
[2025-03-16] MEDS: BLOOD SUGAR DIAGNOSTIC STRIP TEST SCH (13:00)
[2025-03-16] MEDS: FUROSEMIDE 40MG/4ML VIAL IVP SCH (13:00)
[2025-03-16] MEDS: PANTOPRAZOLE SODIUM 40 MG/VIAL IV SCH (13:00)
[2025-03-16] MEDS: ENOXAPARIN 120MG/0.8ML SYR SUBCUT SCH (13:00)
[2025-03-16] MEDS ORDERED: METF-1149 PO (14:00)
[2025-03-16] MEDS: FERROUS SULFATE 325MG TABLET PO SCH (14:36)
[2025-03-16] MEDS: IPRATROPIUM/ALBUTEROL 0.5-3(2.5)MG/3ML NEB HHN SCH (15:32)
[2025-03-16] MEDS ORDERED: IPRATROPIUM/ALBUTEROL 0.5-3(2.5)MG/3ML NEB HHN SCH (18:00)
[2025-03-16] MEDS: METOPROLOL TARTRATE 25MG TABLET PO SCH (21:38)
[2025-03-16] MEDS: ACETAMINOPHEN 325MG TABLET PO PRN (22:51)
[2025-03-16] MEDS ORDERED: CEFTRIAXONE 1GM/50ML 50 ML IV NR (23:00)
[2025-03-16] MEDS ORDERED: AZITHROMYCIN 500MG/250ML 250 ML IV NR (23:30)
[2025-03-17] VITALS (15 sets, daily range): BP systolic 98–134; BP diastolic 43–69; PULSE 66–101; RESP 16–22; TEMP 36.1–37; O2SAT 96–100
[2025-03-17 08:26] LABS: CREATININE 0.7 mg/dL (0.6-1.0); UREA NITROGEN BLOOD 6 mg/dL (9-23)
[2025-03-17 08:31] LABS: BASOPHILS % 0.1 % (0.0-2.0); EOSINOPHILS % 0.1 % (0.0-5.0); HEMATOCRIT. 24.9 % (36.0-48.0); LYMPHOCYTES % 22.3 % (20.0-50.0); MEAN PLATELET VOLUME 8.4 fl (7.4-10.4); MONOCYTES % 8.0 % (2.0-8.0); NEUTROPHILS % 69.5 % (40.0-76.0); PLATELET 266 x1000/uL (130-400); RED BLOOD CELL COUNT 3.80 mill/uL (4.2-5.4); RED CELL DISTRIBUTION WIDTH 21.3 % (11.6-14.6)
[2025-03-17 08:39] LABS: HEMOGLOBIN. 6.9 g/dL (12.0-16.0)
[2025-03-17] MEDS: PANTOPRAZOLE 40MG DR TABLET PO SCH (09:34)
[2025-03-17] MEDS: LEVOFLOXACIN 250MG TABLET PO SCH (09:34)
[2025-03-17] MEDS ORDERED: LIDOCAINE HCL 1% 10 MG/ML 10ML VIAL ONE (09:55)
[2025-03-17 11:48] LABS: UCG KIT EXPIRATION DATE 02/12/2027; UCG KIT LOT# 0000970990; UCG SCREEN NEGATIVE
[2025-03-17] MEDS ORDERED: IOHEXOL-350 100 ML BOTTLE ONE (11:57)
[2025-03-17 14:55] LABS: FOLIC ACID (FOLATE) SERUM 7.86 ng/mL (>5.38)
[2025-03-17] MEDS: CEFTRIAXONE 1GM/50ML 50 ML IV SCH (15:15)
[2025-03-17] MEDS ORDERED: CEFTRIAXONE 1GM/50ML 50 ML IV SCH (20:00)
[2025-03-17] MEDS ORDERED: AZITHROMYCIN 500MG/250ML 250 ML IV SCH (21:00)
[2025-03-18] VITALS (11 sets, daily range): BP systolic 90–128; BP diastolic 53–82; PULSE 70–104; RESP 18–20; TEMP 36.4–36.6; O2SAT 97–99
[2025-03-18 12:39] LABS: BASOPHILS % 1.0 % (0.0-2.0); EOSINOPHILS % 1.3 % (0.0-5.0); HEMATOCRIT. 26.0 % (36.0-48.0); HEMOGLOBIN. 7.5 g/dL (12.0-16.0); LYMPHOCYTES % 18.4 % (20.0-50.0); MEAN PLATELET VOLUME 8.4 fl (7.4-10.4); MONOCYTES % 7.8 % (2.0-8.0); NEUTROPHILS % 71.5 % (40.0-76.0); PLATELET 266 x1000/uL (130-400); RED BLOOD CELL COUNT 3.91 mill/uL (4.2-5.4); RED CELL DISTRIBUTION WIDTH 23.0 % (11.6-14.6)
[2025-03-18 12:52] LABS: CREATININE 0.6 mg/dL (0.6-1.0); UREA NITROGEN BLOOD 9 mg/dL (9-23)
[2025-03-18] MEDS: INSULIN GLARGINE 100 UNITS/ML SUBCUT SCH (21:44)
[2025-03-19] VITALS (10 sets, daily range): BP systolic 109–128; BP diastolic 51–83; PULSE 65–98; RESP 18–22; TEMP 36.1–36.7; O2SAT 97–99
== END 2025-03-19 17:25 | disposition home or self-care (01) | DRG 720 ==
LOC: ER 02:33 → EDUNIT# 02:33 → 6WST 04:15 → EDBEDREQTM 04:24 → EDBEDREQ 04:24 → EDBEDREQSVC 09:34 → ENRESERV 10:16
PROVIDERS: ADMIT Internal Medicine; ATTEND Internal Medicine
PROC: 5A09357 Assistance with Respiratory Ventilation, Less than 24 Consecutive Hours, Continuous Positive Airway Pressure (ICD-10-PCS; 2025-03-16)
PROC: 30243N1 Transfusion of Nonautologous Red Blood Cells into Central Vein, Percutaneous Approach (ICD-10-PCS; principal; 2025-03-17)
PROC: 02HV33Z Insertion of Infusion Device into Superior Vena Cava, Percutaneous Approach (ICD-10-PCS; 2025-03-17)
PROC: B548ZZA Ultrasonography of Superior Vena Cava, Guidance (ICD-10-PCS; 2025-03-17)
PROC: B5181ZA Fluoroscopy of Superior Vena Cava using Low Osmolar Contrast, Guidance (ICD-10-PCS; 2025-03-17)
DX: A41.9 Sepsis, unspecified organism (principal); J96.21 Acute and chronic respiratory failure with hypoxia; E87.20 Acidosis, unspecified; J18.9 Pneumonia, unspecified organism; D64.9 Anemia, unspecified; E11.9 Type 2 diabetes mellitus without complications; Z20.822 Contact with and (suspected) exposure to COVID-19; J44.0 Chronic obstructive pulmonary disease with (acute) lower respiratory infection; J45.901 Unspecified asthma with (acute) exacerbation; E66.01 Morbid (severe) obesity due to excess calories; J98.4 Other disorders of lung; E83.42 Hypomagnesemia; N39.0 Urinary tract infection, site not specified; F17.210 Nicotine dependence, cigarettes, uncomplicated; J98.11 Atelectasis; Z99.81 Dependence on supplemental oxygen; Z68.41 Body mass index [BMI] 40.0-44.9, adult; Z71.6 Tobacco abuse counseling
CPT/HCPCS: 36415; 36573; 71045; 71275; 74176; 80048; 80076; 80305; 80320; 81003; 81025; 82746; 82962; 83036; 83540; 83550; 83605; 83735; 83880; 84425; 84484; 85025; 85044; 85379; 86850; 86900; 86920; 87426; 93005; 94070; 94640; 94660; 94664; 96365; 96375; 98960; 99291; A4606; C1725; J0456; J0696; J1650; J1815; J1938; J2003; J2470; J2543; J2919; J3373; J3475; J7030; P9016; Q9967; G0480

== ENCOUNTER 2025-05-30 06:14 | Inpatient (IN) | payer MEDICAID, OTHER ==
[~2025-05-30] VITALS: Ht 165.1 cm; Wt 120.7 kg
[2025-05-30] VITALS (62 sets, daily range): BP systolic 86–175; BP diastolic 49–102; PULSE 71–127; RESP 11–36; TEMP 36.4–36.7; O2SAT 89–100
[~2025-05-30 06:14] MED LIST changes: +ALBU6.7H3 INH; -AZIT250T12 MT; +BENZ-16 MT; +DOCU-138 MT; +FERR-71 MT; +FLUT1DIS3 INH; +GUAI600T26 MT; -GUAI600T44 PO; +METF-1149 PO; -METH4TAB95 MT; +MONT-46 PO; +P20 MT; -P50 MT
[2025-05-30] MEDS: ALBUTEROL (0.083%) 2.5MG/3ML NEB HHN SCH (06:51)
[2025-05-30] MEDS: IPRATROPIUM BROMIDE (0.02%) 0.5MG/2.5ML NEB HHN SCH ×2 (06:52→21:02)
[2025-05-30] MEDS: METHYLPREDNISOLONE SOD SUCC 125MG/2ML (ACT-O-VIAL) IV ONE (06:58)
[2025-05-30] MEDS: ACETAMINOPHEN 1000MG/100ML 100 ML IV ONE (06:58)
[2025-05-30] MEDS: METOCLOPRAMIDE HCL 10MG/2ML VIAL IV ONE (06:59)
[2025-05-30 07:00] LABS: BASOPHILS % 0.4 % (0.0-2.0); EOSINOPHILS % 1.7 % (0.0-5.0); HEMATOCRIT. 31.1 % (36.0-48.0); HEMOGLOBIN. 8.8 g/dL (12.0-16.0); LYMPHOCYTES % 18.9 % (20.0-50.0); MEAN PLATELET VOLUME 7.8 fl (7.4-10.4); MONOCYTES % 5.9 % (2.0-8.0); NEUTROPHILS % 73.1 % (40.0-76.0); PLATELET 314 x1000/uL (130-400); RED BLOOD CELL COUNT 4.32 mill/uL (4.2-5.4); RED CELL DISTRIBUTION WIDTH 21.2 % (11.6-14.6)
[2025-05-30 07:35] LABS: TROPONIN I HIGH SENSITIVITY 4 ng/L (3.0-34)
[2025-05-30 07:52] LABS: CREATININE 0.5 mg/dL (0.6-1.0); UREA NITROGEN BLOOD 7 mg/dL (9-23)
[2025-05-30 07:54] LABS: BILIRUBIN DIRECT < 0.1 mg/dL (<=3.0); BILIRUBIN TOTAL 0.3 mg/dL (0.1-1.0); PROTEIN TOTAL 7.0 g/dL (6.0-8.3)
[2025-05-30 07:56] LABS: ASPARTATE AMINOTRANSFERASE < 8 IU/L (<34)
[2025-05-30] MEDS: FUROSEMIDE 40MG/4ML VIAL IVP ONE (08:26)
[2025-05-30 09:44] LABS: TROPONIN I HIGH SENSITIVITY 4 ng/L (3.0-34)
[2025-05-30] MEDS ORDERED: DEXTROSE 50% WATER 50ML SYRINGE IV PRN (10:30)
[2025-05-30] MEDS ORDERED: IPRATROPIUM BROMIDE (0.02%) 0.5MG/2.5ML NEB HHN PRN (10:30)
[2025-05-30 10:51] LABS: PHOSPHORUS 3.0 mg/dL (2.5-4.9)
[2025-05-30] MEDS: BLOOD SUGAR DIAGNOSTIC STRIP TEST SCH (11:14)
[2025-05-30 11:20] LABS: BG BASE EXCESS 13.0 mmol/L (-2.0-3.0); BG CARBOXYHEMOGLOBIN 4.9 % (0.5-1.5); BG DEOXYHEMOGLOBIN 6.7 % (0.0-5.0); BG FLOW(L/min) 3.50 L/min; BG FRACTION INSPIRED OXYGEN 34; BG HCO3 ACT 41.5 mmol/L (21.0-28.0); BG METHEMOGLOBIN 0.3 % (0.5-1.5); BG OXYGEN SATURATION 92.9 % (94.0-98.0); BG OXYHEMOGLOBIN 88.1 % (94.0-98.0); BG PCO2 79.3 mmHg (32.0-45.0); BG PH 7.337 (7.350-7.450); BG PO2 67.3 mmHg (83.0-108.0); BG SAMPLE SITE RIGHT RADIAL; BG TOTAL HEMOGLOBIN 10.6 g/dL (12.0-16.0); BG VENT MODE NASAL CANNULA
[2025-05-30 11:40] LABS: UCG SCREEN NEGATIVE
[2025-05-30] MEDS: INSULIN LISPRO 100 UNITS/ML SUBCUT SCH (11:44)
[2025-05-30] MEDS: INSULIN REGULAR (HUMULIN R) 1000UNITS/10ML VIAL IV SCH (11:45)
[2025-05-30] MEDS: NICARDIPINE 50 MG in SODIUM CHLORIDE 0.9% 230 ML IV PRN (12:16)
[2025-05-30] MEDS ORDERED: IOHEXOL-350 100 ML BOTTLE ONE (13:43)
[2025-05-30] MEDS ORDERED: SILDENAFIL CITRATE 20MG TABLET PO SCH (14:00)
[2025-05-30] MEDS ORDERED: HYDRALAZINE 20MG/ML VIAL IV PRN ×2 (15:00→17:00)
[2025-05-30] MEDS: MAGNESIUM 2 G PREMIX 50 ML IV SCH (15:20)
[2025-05-30] MEDS: LEVOFLOXACIN 250MG TABLET PO SCH (15:20)
[2025-05-30] MEDS: PANTOPRAZOLE SODIUM 40 MG/VIAL IV SCH (15:20)
[2025-05-30] MEDS: INSULIN GLARGINE 100 UNITS/ML SUBCUT SCH (15:25)
[2025-05-30] MEDS ORDERED: ACETAMINOPHEN 325MG TABLET PO PRN (15:30)
[2025-05-30] MEDS ORDERED: ONDANSETRON HCL 4MG/2ML INJ IV PRN (15:30)
[2025-05-30] MEDS: FUROSEMIDE 40MG/4ML VIAL IVP SCH (17:20)
[2025-05-30] MEDS: FERROUS SULFATE 325MG TABLET PO SCH (17:20)
[2025-05-30] MEDS: METHYLPREDNISOLONE SOD SUCC 40MG/ML (ACT-O-VIAL) IV SCH (17:20)
[2025-05-30] MEDS: LACTATED RINGERS 1,000 ML IV SCH (17:21)
[2025-05-30] MEDS: LEVETIRACETAM 500MG PREMIX 100 ML IV SCH (17:22)
[2025-05-30] MEDS ORDERED: GUAIFENESIN 200MG/10ML SUGAR FREE UDC PO PRN (17:45)
[2025-05-30] MEDS: GUAIFENESIN/DM 600MG/30MG ER TAB 12HR PO SCH (18:06)
[2025-05-30 18:19] LABS: INR 0.9
[2025-05-30 18:48] LABS: CLARITY URINE CLEAR (CLEAR); GLUCOSE URINE 3+ (NEGATIVE); KETONES URINE TRACE (NEGATIVE); LEUKOCYTE ESTERASE URINE NEGATIVE (NEGATIVE); NITRITE URINE NEGATIVE (NEGATIVE); OCCULT BLOOD URINE 2+ (NEGATIVE); PH URINE 6.0 (4.5-8.0); PROTEIN URINE NEGATIVE (NEGATIVE); SPECIFIC GRAVITY URINE 1.041 (1.005-1.030); UROBILINOGEN URINE 0.2 E.U./dL (0.2-1.0)
[2025-05-30 19:05] LABS: COLOR URINE STRAW (YELLOW); SQUAMOUS EPITHELIAL CELL URINE RARE /lpf (RARE/1+); WBC URINE NONE SEEN /hpf (0-2)
[2025-05-30 19:06] LABS: BACTERIA URINE NONE SEEN
[2025-05-30 19:22] LABS: FOLIC ACID (FOLATE) SERUM 11.74 ng/mL (>5.38); VITAMIN B12 SERUM 458 pg/mL (211-911)
[2025-05-30 20:22] LABS: INFLUENZA TYPE A Presumptive Negative (Pres. Neg.)
[2025-05-30 20:23] LABS: INFLUENZA TYPE B Presumptive Negative (Pres. Neg.); RESPIRATORY SYNCYTIAL VIRUS Not Detected (Not Detectd)
[2025-05-30] MEDS: METOPROLOL TARTRATE 25MG TABLET PO SCH (20:38)
[2025-05-30] MEDS: BUDESONIDE 0.5MG/2ML NEB HHN SCH (21:01)
[2025-05-30] MEDS: FLUTICASONE PROPIONATE 50MCG/SPRAY BOTTLE BOTHNSTRLS SCH (21:06)
[2025-05-30 22:27] LABS: HCG SCREEN NEGATIVE
[2025-05-31] VITALS (41 sets, daily range): BP systolic 98–143; BP diastolic 43–122; PULSE 58–94; RESP 12–32; TEMP 36.2–36.5; O2SAT 93–100
[2025-05-31] MEDS: ACETAMINOPHEN 325MG TABLET PO PRN (04:36)
[2025-05-31 05:30] LABS: BASOPHILS % 0.5 % (0.0-2.0); EOSINOPHILS % 0.0 % (0.0-5.0); HEMATOCRIT. 29.5 % (36.0-48.0); HEMOGLOBIN. 8.4 g/dL (12.0-16.0); LYMPHOCYTES % 13.4 % (20.0-50.0); MEAN PLATELET VOLUME 7.7 fl (7.4-10.4); MONOCYTES % 9.9 % (2.0-8.0); NEUTROPHILS % 76.2 % (40.0-76.0); PLATELET 307 x1000/uL (130-400); RED BLOOD CELL COUNT 4.12 mill/uL (4.2-5.4); RED CELL DISTRIBUTION WIDTH 20.4 % (11.6-14.6)
[2025-05-31 05:41] LABS: CREATININE 0.6 mg/dL (0.6-1.0)
[2025-05-31 05:42] LABS: UREA NITROGEN BLOOD 8 mg/dL (9-23)
[2025-05-31 05:44] LABS: PHOSPHORUS 3.9 mg/dL (2.5-4.9)
[2025-05-31] MEDS: GUAIFENESIN-DM 200MG-20MG/10ML UDC PO PRN (06:25)
[2025-05-31] MEDS: LOSARTAN 25 MG TABLET PO SCH (08:50)
[2025-05-31] MEDS ORDERED: PANTOPRAZOLE SODIUM 40 MG/VIAL IV SCH (09:00)
[2025-05-31 09:40] LABS: BG BASE EXCESS 22.5 mmol/L (-2.0-3.0); BG CARBOXYHEMOGLOBIN 1.4 % (0.5-1.5); BG DEOXYHEMOGLOBIN 1.5 % (0.0-5.0); BG FLOW(L/min) 4.00 L/min; BG FRACTION INSPIRED OXYGEN 36; BG HCO3 ACT 48.5 mmol/L (21.0-28.0); BG METHEMOGLOBIN 0.1 % (0.5-1.5); BG OXYGEN SATURATION 98.5 % (94.0-98.0); BG OXYHEMOGLOBIN 97.0 % (94.0-98.0); BG PCO2 61.5 mmHg (32.0-45.0); BG PH 7.515 (7.350-7.450); BG PO2 110.8 mmHg (83.0-108.0); BG SAMPLE SITE RIGHT RADIAL; BG TOTAL HEMOGLOBIN 10.2 g/dL (12.0-16.0); BG VENT MODE NASAL CANNULA
[2025-05-31] MEDS: INSULIN GLARGINE 100 UNITS/ML SUBCUT SCH (10:00)
[2025-05-31] MEDS: THROAT LOZENGES-BENZOCAINE/MENTH/CETYLPYRD CL LOZENGES MM PRN (10:39)
[2025-06-01] VITALS (16 sets, daily range): BP systolic 103–142; BP diastolic 48–87; PULSE 54–90; RESP 14–27; TEMP 36.2–36.6; O2SAT 94–100
[2025-06-01] MEDS: SODIUM CHLORIDE 3% FOR INH 4ML NEB INH SCH (02:32)
[2025-06-01 05:35] LABS: PLATELET 321 x1000/uL (130-400); RED BLOOD CELL COUNT 4.43 mill/uL (4.2-5.4); RED CELL DISTRIBUTION WIDTH 21.1 % (11.6-14.6)
[2025-06-01] MEDS: METHYLPREDNISOLONE SOD SUCC 40MG/ML (ACT-O-VIAL) IV SCH (05:47)
[2025-06-01 06:02] LABS: CREATININE 0.7 mg/dL (0.6-1.0); UREA NITROGEN BLOOD 13 mg/dL (9-23)
[2025-06-01 06:04] LABS: PHOSPHORUS 4.1 mg/dL (2.5-4.9)
[2025-06-02] VITALS (10 sets, daily range): BP systolic 93–117; BP diastolic 45–88; PULSE 55–77; RESP 16–25; TEMP 36.4–36.7; O2SAT 95–100
[2025-06-02] MEDS: ACETYLCYSTEINE 200MG/ML 20% VIAL 4ML INH SCH
[2025-06-02] MEDS: PREDNISONE 20MG TABLET PO SCH (09:18)
[2025-06-02] MEDS ORDERED: ALBU18HF2 IH (10:03)
[2025-06-02] MEDS ORDERED: LOSA50TA41 MT (10:03)
[2025-06-02] MEDS ORDERED: IPRA3AMP9 NEB (10:03)
[2025-06-02] MEDS ORDERED: P20 MT (10:03)
== END 2025-06-02 14:30 | disposition home or self-care (01) | DRG 720 ==
LOC: ER 06:14 → MICUSO 08:21 → EDBEDREQTM 08:37 → EDBEDREQ 08:37 → EDBEDREQSVC 08:37 → ENRESERV 09:25 → 5EST 05-31 10:16
PROVIDERS: ADMIT Internal Medicine; ATTEND Internal Medicine
PROC: 5A09357 Assistance with Respiratory Ventilation, Less than 24 Consecutive Hours, Continuous Positive Airway Pressure (ICD-10-PCS; principal; 2025-05-31)
PROC: 5A09357 Assistance with Respiratory Ventilation, Less than 24 Consecutive Hours, Continuous Positive Airway Pressure (ICD-10-PCS; 2025-06-01)
DX: A41.9 Sepsis, unspecified organism (principal); I62.9 Nontraumatic intracranial hemorrhage, unspecified; J96.02 Acute respiratory failure with hypercapnia; I27.20 Pulmonary hypertension, unspecified; R16.2 Hepatomegaly with splenomegaly, not elsewhere classified; J81.1 Chronic pulmonary edema; E11.9 Type 2 diabetes mellitus without complications; J44.1 Chronic obstructive pulmonary disease with (acute) exacerbation; E66.01 Morbid (severe) obesity due to excess calories; I11.0 Hypertensive heart disease with heart failure; D50.9 Iron deficiency anemia, unspecified; I25.10 Atherosclerotic heart disease of native coronary artery without angina pectoris; I50.9 Heart failure, unspecified; F17.210 Nicotine dependence, cigarettes, uncomplicated; Z68.41 Body mass index [BMI] 40.0-44.9, adult; Z99.81 Dependence on supplemental oxygen; Z91.199 Patient's noncompliance with other medical treatment and regimen due to unspecified reason
CPT/HCPCS: 36415; 36600; 70496; 71045; 71275; 76700; 80048; 80076; 81003; 81025; 82375; 82607; 82728; 82746; 82805; 82962; 83036; 83540; 83550; 83605; 83735; 83880; 84100; 84145; 84484; 84703; 85014; 85018; 85025; 85027; 85044; 87420; 87804; 93005; 93306; 93971; 94070; 94640; 94660; 94664; 96365; 96375; 97162; 99291; A4606; J1815; J1938; J1953; J2470; J2765; J2919; J3475; J3490; J7050; J7120; J7512; J7608; J7626; Q9967; J0131